=== PATIENT | female | born 1975 | race Caucasian/White ===

== ENCOUNTER 2019-09-27 11:14 | Emergency (ER) | payer OTHER, SELFPAY ==
[2019-09-28 12:21] LABS: SARS-CoV-2 MS2 Positive; SARS-CoV-2 N Gene Negative; SARS-CoV-2 S Gene Negative; SARS-CoV-2 orf1ab Negative
== END 2019-09-27 11:39 | disposition home or self-care (01) ==
LOC: ERS 11:14
DX: R06.02 Shortness of breath (principal); Z20.828 Contact with and (suspected) exposure to other viral communicable diseases; D50.9 Iron deficiency anemia, unspecified; J45.909 Unspecified asthma, uncomplicated; K58.9 Irritable bowel syndrome, unspecified; F41.9 Anxiety disorder, unspecified; F32.9 Major depressive disorder, single episode, unspecified; F17.210 Nicotine dependence, cigarettes, uncomplicated; I10 Essential (primary) hypertension; I05.9 Rheumatic mitral valve disease, unspecified
CPT/HCPCS: 87635; 99283; U0003

== ENCOUNTER 2020-02-17 14:44 | Inpatient (IN) | payer SELFPAY ==
[~2020-02-17 14:44] MED LIST: Iopamidol-370 76% 500 ML 1 ML ONE
[2020-02-17] MEDS ORDERED: Morphine 4 MG/ML VIAL ONE ×3 (15:32→20:40)
[2020-02-17] MEDS ORDERED: Vancomycin 1 GM/200 ML BAG ONE (15:32)
[2020-02-17] MEDS ORDERED: Cefepime 2 GM VIAL ONE (15:32)
[2020-02-17] MEDS ORDERED: Promethazine HCl 25 MG/ML VIAL ONE ×2 (15:32→18:11)
[2020-02-17 15:44] LABS: #Eosinphils 0.2 thou/uL (0.0-0.7); #Lymphocytes 1.8 thou/uL (1.20-3.40); #Monocytes 1.2 thou/uL (0.11-0.59); #Neutrophils 9.9 thou/uL (1.40-6.50); %Basophils 0.2 % (0.0-1.0); %Eosinophils 1.2 % (0.0-10.0); %Lymphocytes 13.9 % (21.0-51.0); %Monocytes 9.4 % (0.0-10.0); %Neutrophils 75.2 % (42.0-75.0); Hemoglobin 11.3 g/dL (12.0-16.0); Mean Corpuscular HGB CONC 32.6 g/dL (32.0-36.0); Mean Corpuscular Hemoglobin 30.4 pg (27.0-31.0); Mean Corpuscular Volume 93.2 fL (78.0-98.0); Mean Platelet Volume 7.6 fL (7.4-10.4); Platelet Count 377 thou/uL (130-400); RBC Distribution Width 13.2 % (11.5-14.5); Red Blood Cell (RBC) Count 3.73 mill/uL (4.20-5.40); White Blood Cell (WBC) Count 13.2 thou/uL (4.8-10.8)
--- NOTE | 2020-02-17 16:05 | RAD ---
PORTABLE CHEST: History: Cough. Patient tested Covid negative on Monday. Comparison: 01-08-20 FINDINGS: Heart size is within normal limits for portable technique. Some slight interstitial markings in the b ase probably related to atelectasis. Scoliotic change in the spine. IMPRESSION: Slightly increased interstitial change in the bases, probably on the basis of atelectasis. POS: [facility]
[2020-02-17 16:07] LABS: ALT (SGPT) 119 U/L (8-55); AST (SGOT) 419 U/L (5-34); Albumin 3.4 g/dL (3.5-5.0); Alkaline Phosphatase 272 U/L (40-110); Anion Gap 17 mmol/L (10-20); BUN (Urea Nitrogen) 9 mg/dL (7.0-18.7); Bilirubin, Total 0.5 mg/dL (0.2-1.2); Calc. Creatinine Clearance 0 mL/min (70-130); Calcium 8.5 mg/dL (7.8-10.44); Carbon Dioxide 22 mmol/L (22-29); Chloride 100 mmol/L (98-107); Globulin 3.7 g/dL (2.4-3.5); Glucose 89 mg/dL (70-105); Magnesium 1.4 mg/dL (1.6-2.6); Protein, Total 7.1 g/dL (6.0-8.3); Sodium 136 mmol/L (136-145)
[2020-02-17 16:20] LABS: Potassium 2.9 mmol/L (3.5-5.1)
[2020-02-17] MEDS ORDERED: Potassium Chloride 20 MEQ/100 ML PREMIX BAG ONE (16:31)
[2020-02-17] MEDS ORDERED: Potassium Chloride 20 MEQ TAB ONE (16:31)
[2020-02-17 17:29] LABS: SARS-CoV-2 NAA Rapid Test Not Detected (NotDetected)
[2020-02-17 17:38] LABS: Bilirubin Negative (Negative); Blood, Urine Negative (Negative); Clarity Clear (Clear); Glucose, Urine (Dipstick) Normal (Negative); Ketone, Urine Negative (Negative); Leukocyte Negative Leu/uL (Negative); Nitrite Negative (Negative); Protein, Urine (Dipstick) Negative (Neg-Trace); Specific Gravity, Urine 1.006 (1.002-1.036); Urobilinogen Normal mg/dL (Less than 2); pH, Urine 5.5 (5.0-9.0)
--- NOTE | 2020-02-17 19:21 | CT ---
CT CHEST, ABDOMEN, AND PELVIS PERFORMED WITH INTRAVENOUS CONTRAST ENHANCEMENT: History: Patient has a history of fever, productive cough. Tested negative for Covid. Comparison: 01-08-2020 FINDINGS: Lungs show some more linear change in the right lower lobe. This may be the sequelae of a previous in fection. There are some subtle areas of nodularity in both lung butts. Most of these are more pleura l based and probably represent small fissural lymph nodes along the minor fissure and major fissure o n the right but there are some other areas of very subtle peripheral nodularity in both lung butts. In addition, there is a pleural based density seen in the right upper lobe which is in the centimeter range, slightly larger pleural based nodularity density measuring approximately 8 mm in width x appr oximately 5 mm in thickness along the anterior chest wall in a parasternal location. Axial image 28. Also a pleural based density seen anteriorly in the right cardiophrenic angle, axial image 44. No ple ural effusion is associated with these findings. There are some mediastinal nodes, one of the larger is a right paratracheal node. It measures 8 mm in size, not pathologically enlarged by size criteria, but somewhat rounded contour. There is a slightl y enlarged prevascular node measuring 10 mm in short axis dimension. Small hilar lymph nodes are pres ent. There is soft tissue asymmetry in the left breast suspicious for a left breast mass. This measures in the 2.4 cm range. There is suggestion of some skin thickening also present and left axillary lymphad enopathy. CT OF THE ABDOMEN PERFORMED WITH INTRAVENOUS CONTRAST ENHANCEMENT: Multiple liver lesions are again identified. They were seen on the previous 01-08-2020 exam but have increased in size and number diffusely infiltrating the right and left lobes. The spleen is within no rmal limits. The pancreas region is unremarkable. Gallbladder has been removed. Right and left adrenal glands and right and left kidneys are normal in size. There is no significant periaortic or mesenteric adenopathy. CT OF PELVIS PERFORMED WITH CONTRAST ENHANCEMENT: Left ovarian cyst incidentally seen measuring in the 3 cm range. No adenopathy or free fluid. Appendi x is normal. Review of the osseous structures show a thoracic vertebral body hemangioma. Some sclerotic bony joy e to it. I would definitely characterize these as metastatic lesions, although a bone scan would be s uggested for better assessment. IMPRESSION: 1. Findings very suspicious for a left breast mass with left axillary adenopathy. 2. Several areas of nodularity within both lung butts, most of which are along the fissures. Al though some subtle areas of nodularity are difficult to exclude as early masses. There are some small slightly prominent right peritracheal lymph nodes and a slightly enlarged prevascular node also seen . In addition, there is a pleural based masses seen within lung butts as discussed above, although n o pleural effusion is identified, these would be suspicious for pleural based neoplastic process. 3. Innumerable liver lesions significantly increased in number as compared to the prior examinat ion although the increase in numbers would raise the possibility of an infectious type process. Given the other findings, this is probably liver metastatic disease. 4. Subtle bony findings as discussed above, probably within normal limits but bone scan would be suggested for definitive confirmation that these are not subtle early blastic bony changes within th e vertebral bodies. 5. Findings discussed with Dr. Hurt. POS: [facility] [place]
[2020-02-17] MEDS ORDERED: RENALLY ADJUST MEDICATIONS FS PRN (20:20)
[2020-02-17] MEDS ORDERED: Magnesium 2 GM/50 ML BAG (IN WATER) ONE (20:41)
[2020-02-17] MEDS: Ondansetron PF 4 MG/2 ML Vial IVP PRN (20:45)
[2020-02-17] MEDS: Morphine 2 MG/ML VIAL SLOW IVP PRN (20:50)
--- NOTE | 2020-02-17 21:42 | PDOC.BPN ---
- Brief Progress Note [id number] dictated
[2020-02-17] MEDS ORDERED: Ondansetron PF 4 MG/2 ML Vial ONE (22:19)
[2020-02-17] MEDS ORDERED: Acetaminophen 500 MG TAB ONE (22:19)
[2020-02-17] MEDS: Sodium Chloride 0.9% 1,000 ML IV SCH (22:22)
[2020-02-17] MEDS ORDERED: metroNIDAZOLE 500 MG/100 ML BAG ONE (22:52)
[2020-02-17] MEDS: metroNIDAZOLE 500 MG in Premix Bag 1 BAG IVPB SCH (22:58)
[2020-02-18] MEDS ORDERED: Morphine 2 MG/ML VIAL ONE ×4 (00:56→17:51)
[2020-02-18] MEDS ORDERED: Ondansetron PF 4 MG/2 ML Vial ONE ×3 (00:57→11:47)
--- NOTE | 2020-02-18 01:06 | HP ---
CHIEF COMPLAINT: Nausea, vomiting, and diarrhea. HISTORY OF PRESENT ILLNESS: Ms. Oconnell is a 44-year-old female with past medical history of irritable bowel syndrome, anxiety, depression, hypertension, mitral valve prolapse, anemia, GERD, chronic knee and back pain, presented to the emergency room with nausea, vomiting, and diarrhea and back pain. Also, she has been coughing with greenish sputum. She has been recently tested for COVID and was negative. She was given 12.5 mg of IV Phenergan and 1 g of Tylenol for from EMS. She took p.o. Motrin prior to calling EMS. She got 500 mL of NS. She stated that she had a fever since last night. She also has a history of C diff in the past. Workup in the emergency room including labs. The patient was found to be hypokalemic with a potassium of 2.9, hypomagnesemic with a magnesium of 1.4, elevated AST/ALT 419/119 respectively, elevated alkaline phosphatase, elevated WBC count 13.2, hemoglobin 11.3, platelets 377. Imaging studies including CT chest and abdomen showed findings suspicious for left breast mass with left axillary adenopathy, several areas of nodularity within both lungs, difficult to exclude early masses. There are slightly prominent right peritracheal lymph nodes. Pleural-based masses are seen within the lung butts. Also, pleural-based neoplastic processes cannot be ruled out. Also findings suspicious for liver metastatic disease. The patient said that she has been feeling a lump in her left breast for almost a year, but she did never seek medical advice. In the emergency room, the patient was started on IV fluids. Potassium and magnesium start replaced and was given broad-spectrum antibiotics. The patient is being admitted to the hospital for further management. COVID-19 test came back undetectable. PAST MEDICAL HISTORY: As mentioned above in the history of present illness. PAST SURGICAL HISTORY: 1. Bilateral jaw surgery. 2. Cholecystectomy. 3. Tubal ligation. PAST PSYCHIATRIC HISTORY: Anxiety and depression. SOCIAL HISTORY: She is a former tobacco user, smokes cigarettes. She denies alcohol drinking. FAMILY HISTORY: Reviewed and noncontributory. HOME MEDICATIONS: See home medication reconciliation form for updated medications. ALLERGIES: ALLERGIC TO ERYTHROMYCIN, MOXIFLOXACIN, SULFA. REVIEW OF SYSTEMS: Review of 14 systems negative except what is mentioned in history of present illness. PHYSICAL EXAMINATION: GENERAL: She is awake, alert, in moderate distress. VITAL SIGNS: Blood pressure is 150/88, pulse 105, respiratory rate is 18, oxygen saturation 97%, temperature 102.6. HEAD AND NECK: Normocephalic, atraumatic. NECK: Supple. CHEST: Fair bilateral air entry. HEART: S1, S2. Regular. ABDOMEN: Distended. Diffusely tender. Bowel sounds present. NEUROLOGIC: Awake, alert, oriented x3. PSYCH: Normal mood. EXTREMITIES: No clubbing or cyanosis. LABORATORY DATA: As mentioned above in the history of present illness. IMAGING STUDIES: As mentioned above in the history of present illness. ASSESSMENT: 1. Sepsis? Suspicious, source is unclear at this point. 2. Probable breast cancer with metastasis. 3. Lung metastasis. 4. Liver metastasis. 5. Hypokalemia. 6. Hypomagnesemia. 7. Anxiety, depression. 8. Former smoker. 9. Hypertension. 10. Nausea, vomiting, diarrhea. 11. History of Clostridium difficile. PLAN: 1. Admit. 2. Replace potassium. 3. Replace magnesium. 4. Septic workup in the ED. 5. Continue with IV antibiotics for now, reassess in a.m. 6. IV fluid hydration. 7. To consult Heme-Oncology for evaluation and further recommendations. 8. Reconcile home medications. 9. DVT prophylaxis as appropriate. 10. Expected length of stay, 2 midnights or more. Job ID: [id number]
[2020-02-18 03:22] LABS: #Basophils 0.1 thou/uL (0.0-0.2); #Lymphocytes 2.7 thou/uL (1.20-3.40); #Monocytes 1.6 thou/uL (0.11-0.59); #Neutrophils 11.4 thou/uL (1.40-6.50); %Basophils 0.4 % (0.0-1.0); %Eosinophils 0.2 % (0.0-10.0); %Lymphocytes 16.9 % (21.0-51.0); %Monocytes 9.9 % (0.0-10.0); %Neutrophils 72.7 % (42.0-75.0); Hemoglobin 11.3 g/dL (12.0-16.0); Mean Corpuscular HGB CONC 33.3 g/dL (32.0-36.0); Mean Corpuscular Hemoglobin 30.1 pg (27.0-31.0); Mean Corpuscular Volume 90.5 fL (78.0-98.0); Mean Platelet Volume 7.7 fL (7.4-10.4); Platelet Count 359 thou/uL (130-400); RBC Distribution Width 13.4 % (11.5-14.5); Red Blood Cell (RBC) Count 3.75 mill/uL (4.20-5.40); White Blood Cell (WBC) Count 15.7 thou/uL (4.8-10.8)
[2020-02-18 03:42] LABS: ALT (SGPT) 101 U/L (8-55); AST (SGOT) 270 U/L (5-34); Alkaline Phosphatase 262 U/L (40-110); Anion Gap 18 mmol/L (10-20); BUN (Urea Nitrogen) 7 mg/dL (7.0-18.7); Bilirubin, Total 0.8 mg/dL (0.2-1.2); Calc. Creatinine Clearance 0 mL/min (70-130); Calcium 8.1 mg/dL (7.8-10.44); Carbon Dioxide 18 mmol/L (22-29); Chloride 104 mmol/L (98-107); Globulin 3.8 g/dL (2.4-3.5); Glucose 97 mg/dL (70-105); Magnesium 2.1 mg/dL (1.6-2.6); Potassium 3.6 mmol/L (3.5-5.1); Protein, Total 6.8 g/dL (6.0-8.3); Sodium 136 mmol/L (136-145)
[2020-02-18] MEDS: Ondansetron PF 4 MG/2 ML Vial IVP PRN ×3 (05:06→20:57)
[2020-02-18] MEDS: Morphine 2 MG/ML VIAL SLOW IVP PRN ×5 (05:06→22:18)
[2020-02-18] MEDS ORDERED: Cefepime 2 GM VIAL ONE ×2 (05:08→17:51)
[2020-02-18] MEDS: Cefepime 2 GM in Sodium Chloride 0.9% 100 ML IVPB SCH ×2 (05:15→18:03)
[2020-02-18] MEDS ORDERED: metroNIDAZOLE 500 MG/100 ML BAG ONE ×2 (06:51→16:44)
[2020-02-18] MEDS: metroNIDAZOLE 500 MG in Premix Bag 1 BAG IVPB SCH ×3 (06:58→23:08)
[2020-02-18] MEDS: Sodium Chloride 0.9% 1,000 ML IV SCH ×2 (06:58→17:24)
[2020-02-18] MEDS ORDERED: Famotidine/PF 20 mg/2ml Vial ONE (09:00)
[2020-02-18] MEDS: Famotidine/PF 20 mg/2ml Vial SLOW IVP SCH ×2 (12:18→20:52)
--- NOTE | 2020-02-18 13:43 | NM ---
WHOLE BODY BONE SCAN: 02/18/20 HISTORY: Suspicious metastatic cancer. RADIOPHARMACEUTICAL: 33 millicuries technetium 99m-MDP injected intravenously. COMPARISON: None. CORRELATION: CT chest, abdomen and pelvis from yesterday. FINDINGS: There are foci of increased uptake in the thoracic and lumbar spine most prominent at T12, L1 and L2 regions. There is also increased focal increased uptake in the left proximal femur. Increased uptake in the shoulders, elbows, wrists, knees and feet are consistent with degenerative ch anges. Tracer excretion through the kidneys are within normal limits. The right kidney is low lying c ompared to the left. IMPRESSION: Findings are suspicious for osseous metastatic disease. POS: [facility]
[2020-02-18] MEDS ORDERED: Morphine 4 MG/ML VIAL ONE (14:16)
--- NOTE | 2020-02-18 15:43 | ULT ---
Exam: Left breast ultrasound and left axillary ultrasound HISTORY: Left breast mass noted on CT. Possible left breast cancer with metastases. FINDINGS: Targeted sonographic imaging of the left breast demonstrates an irregular marginated shadow ing mass measuring 2.9 x 1.7 x 2.1 cm. Targeted imaging of the left axilla demonstrates a necrotic left axillary lymph node measuring 1.2 x 0.8 x 1.3 cm. IMPRESSION: BI-RADS Category 5. Left breast malignancy is suspected along with a necrotic/metastatic left breast lymph node. RECOMMENDATION: Left breast diagnostic mammogram should be performed on an outpatient basis. Transcribed Date/Time: 02/18/2020 4:04 PM
--- NOTE | 2020-02-18 15:49 | ULT ---
Exam: Left breast ultrasound guided biopsy and left axillary biopsy with ultrasound guidance HISTORY: Left breast mass. Metastatic left axillary lymph node. FINDINGS: Successful left breast ultrasound-guided biopsy. A total of three passes were performed. Three 14-gau ge samples were placed directly in formalin. Biopsy clip was placed. Successful left breast axillary biopsy. Aspiration with a Franseen needle (18-gauge) was performed. S mall amount of tissue is present. A second 18-gauge core biopsy sample was placed directly in formalin. Post procedure mammogram confirms the clip is in an appropriate location. TECHNIQUE: Consent obtained to perform a left breast biopsy and left axillary lymph node biopsy with ultrasound guidance. Skin was prepped and draped in sterile fashion. 1% lidocaine, buffered with sodium bicarbonate, was used for local anesthesia. Under ultrasound guidance, 14-gauge needle was advanced i nto the left breast lesion. Three samples were obtained and placed directly in formalin. Biopsy clip was placed. Patient tolerated the procedure well. No immediate or postprocedural complications. 1% lidocaine, buffered with sodium bicarbonate, was used for local anesthesia at the level of the lef t axilla. Initially, an 18-gauge Franseen aspiration was performed. Minimal tissue was present. Therefore, a second 18-gauge core biopsy sample was obtained and placed directly in formalin. No imme diate or postprocedure complications. Postbiopsy mammogram was performed. IMPRESSION: 1. Successful left breast biopsy with ultrasound guidance. 2. Successful left axillary lymph node biopsy with ultrasound guidance. 3. Final pathologic diagnosis pending. Transcribed Date/Time: 02/18/2020 4:08 PM
--- NOTE | 2020-02-18 15:52 | MMO ---
Exam: Post procedure left breast mammogram COMPARISON: None. Initial mammogram FINDINGS: CC and MLO views left breast and a straight appropriate clip position in a spiculated mass in the upper outer left breast. IMPRESSION: Appropriate clip position. Postprocedure mammogram
--- NOTE | 2020-02-18 15:58 | ULT ---
Please refer to ultrasound breast biopsy report for further detail.
[2020-02-18] MEDS ORDERED: Vancomycin 1 GM in Premix Bag 1 BAG IVPB SCH ×2 (17:00→20:00)
--- NOTE | 2020-02-18 17:44 | PDOC.HOSPP ---
- Subjective Encounter Date: 02/18/20 Encounter Time: 13:00 Subjective: F/u: breast mass fever, abdominal pain Breast mass - THe patient reports severe pain on left breast. She states it has been growing for the past one year. She did not get her lump checked out because she said she had no insurance. Her PCP knew about it adn referred her for a mammogram but she did not get it done fo rthis reason. She reports milky discharge coming from her breast, no blood. SHe took control for years. Abd pain - She also reports chronic abdominal pain and diarrhea for years. She says her mother and sister have inflammatory bowel disease ( she thinks). She has never had a colonoscopy. She still is having pain in RUQ . She has not seen blood in her stools. She denies eating undercooked meat . The pain radiates to her back . The patient states she had a cholecystectomy earlier this year for abdominal pain. SHe also says she had a liver biopsy for liver lesions within the past few years that was normal - Objective Result Diagrams: 02/18/20 03:14 02/18/20 03:13 Hospitalist ROS - Review of Systems Constitutional: denies: fever, chills - Medication Medications: Active Medications Generic Name Dose Route Start Last Admin Trade Name Freq PRN Reason Stop Dose Admin Famotidine 20 mg 02/18/20 09:00 02/18/20 12:18 Famotidine/Pf 20 Mg/2ml Vial SLOW IVP 20 mg BID KATRINA Administration Sodium Chloride 1,000 mls @ 100 mls/hr 02/17/20 20:30 02/18/20 17:24 Normal Saline 0.9% IV Not Given .Q10H KATRINA Cefepime HCl 2 gm/ Sodium 100 mls @ 200 mls/hr 02/18/20 04:00 02/18/20 05:15 Chloride IVPB 100 mls 0400,1600 KATRINA Administration Metronidazole 500 mg/ Device 100 mls @ 100 mls/hr 02/17/20 22:00 02/18/20 17:13 IVPB 100 mls Q8HR KATRINA Administration Morphine Sulfate 2 mg 02/18/20 00:38 02/18/20 14:31 Morphine 2 Mg/Ml Vial SLOW IVP 2 mg Q4H PRN Administration Pain Ondansetron HCl 4 mg 02/18/20 00:40 02/18/20 12:19 Ondansetron Pf 4 Mg/2 Ml Vial IVP 4 mg Q6H PRN Administration Nausea/Vomiting - Exam General Appearance: NAD, awake alert Eye: PERRL, anicteric sclera ENT: normocephalic atraumatic, no oropharyngeal lesions Neck: no JVD Heart: RRR, no murmur, no gallops, no rubs Respiratory: CTAB, no wheezes, no rales, no ronchi Gastrointestinal: soft, non-tender, non-distended, normal bowel sounds Extremities: no cyanosis, no clubbing, no edema Skin: normal turgor, no lesions, no rashes Neurological: cranial nerve grossly intact, normal sensation to touch, no focal deficits, no new deficit Musculoskeletal: normal tone, normal strength, no muscle wasting Hosp A/P - Plan Left breast ultrasound: mass measuring 2.9 x 1.7 x 2.1 cm with necrotic axillary lymph node measuring 1.2 x 0.3 x 1.3 cm This is a 44 year old female with past medical history of anxiety, depression, mitral valve prolapse, gerd who presented to the hospital with breast pain, abdominal pain, diarrhea #Left breast mass with axillary adenopathy - suspect malignancy - discussed with radiology, plan for left breast mass biopsy today. - oncology has been consulted. Bone scan was done today showing possible osseous metastatic disease #Sepsis- possibly secondary to breast cellulitis/mastitis - fever of 102 and tachycardia - started on cefepime and flagyl. Will add vancomycin #C diff infection #Transaminitis #Chronic abdominal pain - LFTs are elevated but downtrending. GI has been consulted. CT abdomen showed liver lesions, but patient reports biopsy in the past that was normal. Obtain outpatient liver biopsy results - patient tested positive for C diff, ordered oral vancomycin - may have Crohn's disease or ulcerative colitis? Gi consulted - f/u stool cultures, ova and parasite. C diff negative Disposition: pending biopsy results , GI consult, heme consult
[2020-02-18 20:00] VITALS: BMI 31.3
[2020-02-18] MEDS: Vancomycin HCl 25 MG/ML Oral PO SCH (20:51)
[2020-02-18] MEDS: Vancomycin 1.5 GRAM/300 ML BAG 1.5 GM in Premix Bag 1 BAG IVPB SCH (20:52)
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
--- NOTE | 2020-02-18 21:51 | CON ---
DATE OF CONSULTATION: 02/18/2020 This is a GI inpatient consultation note. REASON FOR CONSULTATION: Chronic diarrhea and abdominal pain. Elevated LFTs, suspected metastatic disease. HISTORY OF PRESENT ILLNESS: Rozina Aguilar is a very pleasant 44-year-old woman, who was admitted to the hospital yesterday. She has a history significant for depression and anxiety as well as chronic pain. She had a cholecystectomy in the remote past. She was recently hospitalized with pyelonephritis and C difficile in late December 2019. She was admitted here yesterday with recurrence of fevers and ongoing significant nausea, vomiting, and diarrhea. Laboratory studies have demonstrated leukocytosis and new LFT elevation and imaging with CT is significant for multiple bilateral new Pulmonary and pleural-based nodules as well as many small liver lesions, which is concerning for metastatic disease, as well as malignant-appearing left breast mass with necrotic adenopathy. She just got back from imaging-guided breast biopsy. She was started on sepsis treatment with broad-spectrum antibiotics with vancomycin, cefepime, and metronidazole. With regard to gastrointestinal symptoms, she said she really has had chronic diarrhea and abdominal pain for many years, but significantly worse over the past several days. Notably, she was noted to have C difficile positive antigen and toxin on testing in December and believe she completed treatment for this, but cannot really verify it. She has had multiple family members with C difficile in the past, but denies any family history of inflammatory bowel disease. She has never undergone EGD or colonoscopy. REVIEW OF SYSTEMS: Full review of systems including constitutional, head, eyes, ears, nose, throat, GI, , cardiovascular, respiratory, musculoskeletal, neurologic systems is negative except as noted in the HPI. PAST MEDICAL HISTORY: Depression and anxiety, hypertension, IBS, GERD, chronic knee and back pain. Clostridium difficile infection December 2019. Jaw surgery. Cholecystectomy around 2006. Tubal ligation. Pyelonephritis. ALLERGIES: ERYTHROMYCIN, MOXIFLOXACIN, SULFA. OUTPATIENT MEDICATIONS: 1. Tramadol. 2. Venlafaxine. 3. Florastor. 4. Potassium chloride. 5. Pantoprazole 40 mg daily. 6. Zofran p.r.n. 7. Lisinopril. 8. Lomotil p.r.n. 9. Keflex. 10. Soma. 11. Xanax. INPATIENT MEDICATIONS: 1. Cefepime 2 g IV q.12 hours. 2. Pepcid 20 mg IV q.12 hours. 3. Metronidazole 500 mg IV q.8 hours. 4. Morphine p.r.n. 5. Zofran p.r.n. 6. Vancomycin 1 g IV q.12 hours. SOCIAL HISTORY: She is a former smoker. No alcohol abuse. FAMILY HISTORY: Negative for inflammatory bowel disease or colon cancer that she knows of. She has a paternal aunt and a maternal aunt who have had breast cancer PHYSICAL EXAMINATION: VITAL SIGNS: Temperature 102.6, pulse 115, blood pressure 150/88, 97% oxygen saturation on room air. GENERAL: A 44-year-old woman lying in bed comfortably, in no distress. MENTAL: She is alert and oriented, pleasant, conversational. She is a bit tearful and anxious. SKIN: No jaundice. No rashes were palpable EYES: No scleral icterus. Extraocular movements intact. ENT: Mucous membranes moist. No oral lesions. LYMPH: No submandibular supraclavicular lymphadenopathy, thyroid nontender to palpation. HEART: Regular rate and rhythm. LUNGS: Clear to auscultation bilaterally. BREAST: I did not perform a clinical breast exam this afternoon. ABDOMEN: Nondistended, bowel sounds present. Soft. Generalized tenderness to palpation, but no guarding, rebound tenderness. EXTREMITIES: No peripheral edema. VESSELS: Radial pulses 2+ bilaterally. NEURO: Cranial nerves II through XII intact bilaterally. No focal deficits. LABORATORY STUDIES: WBC 15.7, hemoglobin 11.3, platelets 359, MCV 90. Sodium 136, potassium 3.6, BUN 7, creatinine 0.75, total bilirubin 0.8, alkaline phosphatase elevated to 262, AST elevated to 70, ALT is 101, albumin 3.0. Urinalysis negative. COVID PCR negative. Urine is positive for opiates, benzos, and cannabinoids. Stool C difficile antigen is positive. Toxin is pending. Blood and urine cultures showing no growth at 24 hours. IMAGING STUDIES: CT of the chest, abdomen, and pelvis showed multiple concerning findings. There is a left breast mass with left axillary adenopathy. Several areas of nodularity in both lung butts with pleural-based masses. There are innumerable liver lesions, likely representing metastatic disease. There are some subtle vertebral bone lesions as well. Bone scan shows increased uptake in multiple levels of the thoracic and lumbar spine as well as in the left femur suspicious for metastatic disease. Breast ultrasound shows a 2.9 cm left breast mass, also necrotic left axillary lymph node measuring 1.3 cm. This was biopsied. ASSESSMENT/PLAN: 1. Sepsis. 2. Chronic diarrhea, with recent history of C difficile. The patient tested positive for C difficile antigen and toxin in late December. It is unclear to me whether she completed treatment for this. Clostridium difficile antigen is positive here. Regardless of the toxin results, we will go ahead and start oral vancomycin 125 mg 4 times daily. We will expand the stool studies to include fecal lactoferrin and stool culture. This is a possible source of her sepsis presentation, or this could just represent reactive changes from metastatic disease. 3. Probable metastatic disease, with left breast mass. This was biopsied earlier today. Pathology is pending. This is obviously the primary issue here. 4. Elevated LFTs. This is in the context of innumerable small liver lesions concerning for metastatic disease. It likely does not represent any other primary hepatocellular process. We will go ahead and order a viral hepatitis serologies, autoimmune markers, iron studies, etc. to rule out any concomitant primary liver disease. 5. I do not think the patient is going to benefit from any endoscopic workup unless the breast biopsy comes back negative or unrevealing for primary malignancy or if the patient's stool studies are negative and significant diarrhea persists despite oral vancomycin course. Thank you for the consultation. Please call anytime with questions or concerns. Job ID: [id number]
[2020-02-19] MEDS: Vancomycin HCl 25 MG/ML Oral PO SCH ×5 (00:17→23:15)
[2020-02-19] MEDS: Morphine 2 MG/ML VIAL SLOW IVP PRN ×6 (02:31→23:05)
[2020-02-19] MEDS: Ondansetron PF 4 MG/2 ML Vial IVP PRN ×2 (02:31→21:09)
[2020-02-19] MEDS: Sodium Chloride 0.9% 1,000 ML IV SCH ×2 (02:32→11:50)
[2020-02-19] MEDS: Cefepime 2 GM in Sodium Chloride 0.9% 100 ML IVPB SCH (04:28)
[2020-02-19 04:58] LABS: INR-International Normal Ratio 1.4; Prothrombin Time 17.2 sec (12.0-14.7)
[2020-02-19 05:05] LABS: Acetaminophen Less than 6.0 mcg/mL (10.0-30.0); Iron 17 ug/dL (50-170); Iron Binding Capacity, Total 131 mcg/dL (265-497)
[2020-02-19] MEDS: metroNIDAZOLE 500 MG in Premix Bag 1 BAG IVPB SCH ×2 (05:24→14:59)
[2020-02-19 06:17] LABS: HBSAg Index 0.15 S/CO (0-0.99); Hep B Surf Ag Non-Reactive S/CO (NonReactive); Hep C IgG Ab Non-Reactive (NonReactive); Hep C Index 0.07 S/CO (0-0.79)
[2020-02-19 06:18] LABS: Hep A IgM AB Non-Reactive (NonReactive)
[2020-02-19 06:19] LABS: Hep A IgM S/CO 0.16 S/CO (0-0.79)
[2020-02-19 06:20] LABS: HBCM Index 0.11 S/CO (0-0.79); Hepatitis B Core IgM Abs Non-Reactive (NonReactive)
[2020-02-19 06:55] LABS: Ferritin 7089.82 ng/mL (10-291)
[2020-02-19] MEDS: Vancomycin 1.5 GRAM/300 ML BAG 1.5 GM in Premix Bag 1 BAG IVPB SCH ×2 (09:50→21:15)
[2020-02-19] MEDS: Famotidine/PF 20 mg/2ml Vial SLOW IVP SCH ×3 (09:50→21:11)
[2020-02-19] MEDS: traMADol HCl 50 MG TAB PO PRN ×3 (09:50→23:06)
[2020-02-19] MEDS: Ketorolac Tromethamine 30 MG/ML VIAL IVP PRN ×2 (09:51→16:20)
[2020-02-19] MEDS: CEFAZOLIN 2 GM in Premix Bag 1 BAG IVPB SCH ×2 (09:59→17:48)
--- NOTE | 2020-02-19 10:26 | PDOC.HOSPP ---
- Subjective Encounter Date: 02/19/20 Encounter Time: 10:26 Subjective: Patient complains of ongoing abdominal pain, back pain, and left breast pain. Rates pain at 7-10/10, despite current pain regime. Her breast pain is worst in the area of her biopsy site. She is still having nausea and frequent bouts of watery diarrhea. No blood or mucous in stool. She has been able to eat and drink, although this exacerbates her diarrhea. - Objective Vital Signs & Weight: Vital Signs (12 hours) Temp Pulse Resp BP BP Pulse Ox 02/19/20 08:00 98.5 F 103 H 16 135/88 96 02/19/20 04:00 98.9 F 113 H 14 152/84 H 95 02/18/20 23:25 98.9 F 107 H 16 144/82 H 95 Weight Weight 206 lb I&O: 02/18/20 02/19/20 02/20/20 06:59 06:59 06:59 Intake Total 2800 Balance 2800 Result Diagrams: 02/19/20 13:16 02/18/20 03:13 Hospitalist ROS - Review of Systems Constitutional: denies: fever, chills Respiratory: denies: cough, shortness of breath Cardiovascular: denies: chest pain, palpitations Gastrointestinal: reports: nausea, vomiting, abdominal pain, diarrhea. denies: melena, hematochezia Genitourinary: denies: dysuria, frequency, incontinence Musculoskeletal: reports: back pain Skin: denies: rash - Medication Medications: Active Medications Generic Name Dose Route Start Last Admin Trade Name Freq PRN Reason Stop Dose Admin Famotidine 20 mg 02/18/20 09:00 02/19/20 09:56 Famotidine/Pf 20 Mg/2ml Vial SLOW IVP Not Given BID KATRINA Sodium Chloride 1,000 mls @ 100 mls/hr 02/17/20 20:30 02/19/20 02:32 Normal Saline 0.9% IV 1,000 mls .Q10H KATRINA Administration Metronidazole 500 mg/ Device 100 mls @ 100 mls/hr 02/17/20 22:00 02/19/20 05:24 IVPB 100 mls Q8HR KATRINA Administration Vancomycin HCl 1.5 gm/ Device 300 mls @ 200 mls/hr 02/18/20 21:00 02/19/20 09:50 IVPB 300 mls Q12HR KATRINA Administration Ketorolac Tromethamine 30 mg 02/19/20 09:28 02/19/20 09:51 Ketorolac Tromethamine 30 Mg/Ml Vial IVP 02/24/20 09:29 30 mg Q6H PRN Administration Pain Morphine Sulfate 2 mg 02/18/20 00:38 02/19/20 06:34 Morphine 2 Mg/Ml Vial SLOW IVP 2 mg Q4H PRN Administration Pain Ondansetron HCl 4 mg 02/18/20 00:40 02/19/20 02:31 Ondansetron Pf 4 Mg/2 Ml Vial IVP 4 mg Q6H PRN Administration Nausea/Vomiting Pantoprazole Sodium 40 mg 02/19/20 09:00 02/19/20 09:51 Pantoprazole 40 Mg Tab PO 40 mg DAILY KATRINA Administration Tramadol HCl 25 mg 02/19/20 09:29 02/19/20 09:50 Tramadol Hcl 50 Mg Tab PO 25 mg Q6H PRN Administration Severe Pain (7-10) Vancomycin HCl 125 mg 02/18/20 18:00 02/19/20 05:24 Vancomycin Hcl 25 Mg/Ml Oral PO 125 mg Q6HR KATRINA Administration - Exam General Appearance: awake alert Eye: PERRL ENT: normocephalic atraumatic, moist mucosa Neck: supple, no lymphadenopathy Heart: RRR, no murmur, no gallops, no rubs Respiratory: CTAB, no wheezes, no rales, no ronchi Gastrointestinal: soft, normal bowel sounds, tender to palpation (diffuse) Extremities: no cyanosis, no edema Skin - other findings: Left breast: tenderness to the lower quadrants, decreased redness of skin Musculoskeletal: normal tone, normal strength Psychiatric: normal affect, A&O x 3 Hosp A/P - Plan continue antibiotics Left breast ultrasound: mass measuring 2.9 x 1.7 x 2.1 cm with necrotic axillary lymph node measuring 1.2 x 0.3 x 1.3 cm This is a 44 year old female with past medical history of anxiety, depression, mitral valve prolapse, gerd who presented to the hospital with breast pain, abdominal pain, diarrhea #Left breast mass with axillary adenopathy - suspect malignancy - left breast mass biopsy done yesterday with results pending - oncology has been consulted. Bone scan was done yesterday shows possible osseous metastatic disease - patient with persistent pain. Will Add Toradol and Tramadol to pain regimen and continue IV morphine #Sepsis- possibly secondary to breast cellulitis/mastitis - Afebrile today, but continued tachycardia. WBC has improved from 15 to 11 - Continue with Vancomycin, but will switch from cefepime to cefazolin for MSSA and strep coverage #C diff infection #Chronic abdominal pain - LFTs are elevated but downtrending. GI has been consulted. CT abdomen showed liver lesions, but patient reports biopsy done here at [facility] around 2002- 2006 timeframe was normal. Will attempt to obtain these records. - patient tested positive for C diff, continue oral vancomycin - stool cultures, ova and parasite are still pending #Transaminitis - likely from dehydration - LFTs are dowtnrending with IV fluids. Hepatitis panel is normal, SHAHLA, anti- smooth muscle and antimitochondrial antibody pending Disposition: pending biopsy results and improvement in pain Attending addendum: I have seen and examined the patient with the medical student and agree with the assessment and plan. Physical exam: patient is still having severe breast tenderness. She was in te ars on examination from being in pain. She also has abdominal tenderness. Disposition is pending improvement in pain control, diarrhea. Switched cefepime to cefazolin since doubt bacterial intra-abdominal infection and to cover for breast cellulitis
[2020-02-19 13:30] LABS: Hemoglobin 9.7 g/dL (12.0-16.0); Mean Corpuscular HGB CONC 32.6 g/dL (32.0-36.0); Mean Corpuscular Hemoglobin 30.3 pg (27.0-31.0); Mean Corpuscular Volume 92.9 fL (78.0-98.0); Platelet Count 328 thou/uL (130-400); RBC Distribution Width 13.3 % (11.5-14.5); White Blood Cell (WBC) Count 11.6 thou/uL (4.8-10.8)
[2020-02-19 13:59] LABS: ALT (SGPT) 62 U/L (8-55); AST (SGOT) 88 U/L (5-34); Albumin 2.8 g/dL (3.5-5.0); Alkaline Phosphatase 190 U/L (40-110); Bilirubin, Direct 0.3 mg/dL (0.1-0.3); Bilirubin, Total 0.4 mg/dL (0.2-1.2); Protein, Total 6.2 g/dL (6.0-8.3)
[2020-02-19 14:24] LABS: Thyroid Stimulating Hormone 2.2818 uIU/mL (0.35-4.94)
--- NOTE | 2020-02-19 19:33 | PRG ---
DATE OF SERVICE: 02/19/2020 This is a GI followup. SUBJECTIVE: Ms. Oconnell notes her diarrhea is about the same as it was yesterday. Her stool did test positive for Clostridium difficile antigen, toxin. Dr. Campo did start her on vancomycin yesterday. She had her breast biopsy done, she states yesterday, the pathology is still pending. PHYSICAL EXAMINATION: VITAL SIGNS: Temperature 98, pulse 87, and blood pressure 127/71. ABDOMEN: Protuberant, nontender. LABORATORY DATA: White count 11.6, down from 15, yesterday. Hemoglobin is 9.7, platelet count 328. AST and ALT down to 88 and 62, alkaline phosphatase of 160. B12 normal. TSH normal. Folate normal. ASSESSMENT: 1. Multiple liver masses, likely metastatic breast cancer with large breast mass biopsied, necrotic axillary mass. 2. Clostridium difficile colitis. She states she has had this in the past, the last time back in December. She states she was treated for only two weeks in [place], and there is a positive Clostridium difficile toxin antigen from 01/09. RECOMMENDATIONS: 1. Florastor for three months. 2. Vancomycin, would increase to 250 q.6 hours for 2 weeks and then after two weeks, taper to t.i.d. for a week, b.i.d. for a week, once a day for a week, then every other day for 7 doses, then every third day for 7 doses. 3. Would stop the Protonix since she is going to be on famotidine. 4. The cefepime has been stopped. Would stop the Ancef with negative blood cultures, it is going to make her Clostridium difficile worse. Job ID: [id number]
[2020-02-19] MEDS ORDERED: Vancomycin HCl 25 MG/ML Oral PO SCH (20:00)
[2020-02-19] MEDS: Saccharomyces boulardii 250 MG CAP PO SCH (21:11)
[2020-02-20] MEDS: metroNIDAZOLE 500 MG in Premix Bag 1 BAG IVPB SCH ×4 (00:14→21:01)
[2020-02-20] MEDS: Sodium Chloride 0.9% 1,000 ML IV SCH ×3 (00:19→14:20)
[2020-02-20] MEDS: Ketorolac Tromethamine 30 MG/ML VIAL IVP PRN ×4 (02:04→22:07)
[2020-02-20] MEDS: CEFAZOLIN 2 GM in Premix Bag 1 BAG IVPB SCH (02:06)
[2020-02-20] MEDS: Morphine 2 MG/ML VIAL SLOW IVP PRN ×4 (05:47→20:45)
[2020-02-20] MEDS: traMADol HCl 50 MG TAB PO PRN (05:48)
[2020-02-20] MEDS: Vancomycin HCl 25 MG/ML Oral PO SCH ×3 (05:49→17:59)
[2020-02-20 07:14] LABS: Hemoglobin 9.9 g/dL (12.0-16.0); Mean Corpuscular HGB CONC 32.1 g/dL (32.0-36.0); Mean Corpuscular Hemoglobin 30.7 pg (27.0-31.0); Mean Corpuscular Volume 95.6 fL (78.0-98.0); Mean Platelet Volume 7.3 fL (7.4-10.4); Platelet Count 318 thou/uL (130-400); RBC Distribution Width 13.4 % (11.5-14.5); Red Blood Cell (RBC) Count 3.23 mill/uL (4.20-5.40); White Blood Cell (WBC) Count 9.9 thou/uL (4.8-10.8)
[2020-02-20 07:34] LABS: Anion Gap 15 mmol/L (10-20); BUN (Urea Nitrogen) 11 mg/dL (7.0-18.7); Calc. Creatinine Clearance 139 mL/min (70-130); Calcium 7.9 mg/dL (7.8-10.44); Carbon Dioxide 20 mmol/L (22-29); Chloride 108 mmol/L (98-107); Glucose 90 mg/dL (70-105); Sodium 140 mmol/L (136-145)
[2020-02-20] MEDS: Famotidine/PF 20 mg/2ml Vial SLOW IVP SCH ×2 (08:18→20:47)
[2020-02-20] MEDS: Ondansetron PF 4 MG/2 ML Vial IVP PRN (08:23)
[2020-02-20 08:30] LABS: Vancomycin, Trough 21.7 ug/mL
[2020-02-20] MEDS: Vancomycin 1.5 GRAM/300 ML BAG 1.5 GM in Premix Bag 1 BAG IVPB SCH (08:33)
[2020-02-20] MEDS ORDERED: Doxycycline 100 MG CAP PO SCH (09:00)
[2020-02-20] MEDS ORDERED: Vancomycin HCl 1.25 GM in Sodium Chloride 0.9% 250 ML 250 ML IVPB SCH (09:00)
[2020-02-20 09:47] LABS: ALT (SGPT) 45 U/L (8-55); AST (SGOT) 68 U/L (5-34); Albumin 2.8 g/dL (3.5-5.0); Alkaline Phosphatase 174 U/L (40-110); Bilirubin, Direct 0.2 mg/dL (0.1-0.3); Bilirubin, Total 0.2 mg/dL (0.2-1.2); Protein, Total 5.8 g/dL (6.0-8.3)
[2020-02-20 12:52] LABS: ANA Symphony (Qualitative) Negative (Negative); ANA Symphony (Quantitative) 0.3 Ratio (< 0.7 Negative); dsDNA IgG Antibody 0.9 IU/mL (<10 Negative)
[2020-02-20 12:53] LABS: EliA Vaculitis New Method **** NEW METHOD ****; Mitochondrial Ab 1.2 U/mL (<4 Negative)
--- NOTE | 2020-02-20 14:44 | PDOC.HOSPP ---
- Subjective Encounter Date: 02/20/20 Encounter Time: 14:58 Subjective: Ms. Anish Aguilar has significant improvement of her breast, abdominal, and back pain with her current pain regime. Rates pain around 6/10, but improving. She reports having more energy today and has been able to walk to and from the bathroom. She denies any nipple discharge. She has had 6 episodes of diarrhea so far today as well as mild nausea. No vomitting. She is eating and drinking well, although this tends to exacerbate her diarrhea. However, she has a PMHx of IBS and states that post prandial diarrhea is somewhat recurrent for her over the past few years. She denies any fever, chills, cough, shortness of breath, chest pain. - Objective Vital Signs & Weight: Vital Signs (12 hours) Temp Pulse Resp BP BP Pulse Ox 02/20/20 11:20 96.9 F L 73 16 130/80 97 02/20/20 08:00 96.9 F L 88 16 166/99 H 97 02/20/20 03:43 97.4 F L 78 16 149/82 H 95 Weight Admit Weight 206 lb Weight 206 lb I&O: 02/19/20 02/20/20 02/21/20 06:59 06:59 06:59 Intake Total 2800 Balance 2800 Result Diagrams: 02/20/20 06:54 02/20/20 06:54 Hospitalist ROS - Review of Systems Constitutional: denies: fever, chills, sweats Respiratory: denies: cough, shortness of breath Cardiovascular: denies: chest pain, palpitations, light headedness Gastrointestinal: reports: nausea, abdominal pain, diarrhea. denies: vomiting, melena, hematochezia Genitourinary: denies: dysuria, frequency - Medication Medications: Active Medications Generic Name Dose Route Start Last Admin Trade Name Freq PRN Reason Stop Dose Admin Famotidine 20 mg 02/18/20 09:00 02/20/20 08:18 Famotidine/Pf 20 Mg/2ml Vial SLOW IVP 20 mg BID KATRINA Administration Metronidazole 500 mg/ Device 100 mls @ 100 mls/hr 02/17/20 22:00 02/20/20 13:48 IVPB 100 mls Q8HR KATRINA Administration Ketorolac Tromethamine 30 mg 02/19/20 09:28 02/20/20 13:52 Ketorolac Tromethamine 30 Mg/Ml Vial IVP 02/24/20 09:29 30 mg Q6H PRN Administration Pain Morphine Sulfate 2 mg 02/18/20 00:38 02/20/20 11:40 Morphine 2 Mg/Ml Vial SLOW IVP 2 mg Q4H PRN Administration Pain Ondansetron HCl 4 mg 02/18/20 00:40 02/20/20 08:23 Ondansetron Pf 4 Mg/2 Ml Vial IVP 4 mg Q6H PRN Administration Nausea/Vomiting Pantoprazole Sodium 40 mg 02/19/20 09:00 02/20/20 08:20 Pantoprazole 40 Mg Tab PO 40 mg DAILY KATRINA Administration Saccharomyces Boulardii 250 mg 02/19/20 21:00 02/19/20 21:11 Saccharomyces Boulardii 250 Mg Cap PO 250 mg HS KATRINA Administration Tramadol HCl 25 mg 02/19/20 09:29 02/20/20 05:48 Tramadol Hcl 50 Mg Tab PO 25 mg Q6H PRN Administration Severe Pain (7-10) Vancomycin HCl 250 mg 02/19/20 23:59 02/20/20 11:44 Vancomycin Hcl 25 Mg/Ml Oral PO 250 mg Q6HR KATRINA Administration - Exam General Appearance: NAD, awake alert Eye: PERRL, anicteric sclera ENT: normocephalic atraumatic, moist mucosa Neck: supple, no lymphadenopathy Heart: RRR, no murmur, no gallops, no rubs Respiratory: no rales, no ronchi, normal chest expansion, wheezes (mild, expiratory) Gastrointestinal: soft, non-distended, normal bowel sounds, no palpable masses, tender to palpation (diffuse) Extremities: no cyanosis, no clubbing, no edema Skin: normal turgor, no lesions, no rashes Skin - other findings: left breast: tenderness on the lower half, no erythema of skin Neurological: no focal deficits Musculoskeletal: normal tone, normal strength Psychiatric: normal affect, normal behavior, A&O x 3 Hosp A/P - Plan Left breast ultrasound: mass measuring 2.9 x 1.7 x 2.1 cm with necrotic axillary lymph node measuring 1.2 x 0.3 x 1.3 cm This is a 44 year old female with past medical history of anxiety, depression, mitral valve prolapse, gerd who presented to the hospital with breast pain, abdominal pain, diarrhea #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 Bone scan showed possible osseous metastatic disease - oncology has been consulted. Patient will follow up with oncology as an outpatient with consideration of mediport placement once her C diff has resolved - continue tramadol and toradol for pain. Will increase tramadol to 50 mg q4 hours #Sepsis- possibly secondary to C diff, possibly breast cellulitis/mastitis - Afebrile. WBC has normalized to 9.9 today. - Continue with oral Vancomycin. Due to her C. diff and persistent diarrhea, we will discontinue the cefazolin and doxycycline #C diff infection - patient positive for C diff, continue oral vancomycin 250 mg q6 hours - stool culture pending. Ova & parasite stool testing were negative, except for an elevated stool lactoferrin. #Transaminitis - likely from dehydration -LFTs are still elevated but downtrending. GI is following. CT abdomen showed liver lesion, likely metastatic. Liver biopsy showed steatosis in 2004, but no liver lesions noted at that time. Hepatitis panel is normal, SHAHLA, anti-smooth muscle and antimitochondrial antibody pending #Hyopkalemia -Potassium level low at 3.0 today. Will supplement with oral potassium and recheck Disposition: Continued pain management and improvement in diarrhea before discharge Attending addendum: I have seen and examined the patient with the medical student and agree with the assessment and plan. The patient has improved pain in her left breast, it has improved to 6, toradol and morphine are working. She states her pain never goes down below a 6. Had four loose stools this morning Exam: Breast: very tender underneath left breast around 5:00 position. No erythema Abdomen: diffuse mild tenderness Lungs: wheezing noted on left side Plan: will add albuterol for wheezing. Discontinue cefazolin and doxycycline to see if diarrhea improves and evaluate if cellulitis or any GI symptoms worsen. Increase tramadol to 50 mg. D/c in am tomorrow likely
--- NOTE | 2020-02-20 15:11 | PDOC.MOPN ---
Interval History: pain improved, diarrhea controlled. - Vital Signs Vital Signs: Vital Signs (12 hours) Temp Pulse Resp BP BP Pulse Ox 02/20/20 11:20 96.9 F L 73 16 130/80 97 02/20/20 08:00 96.9 F L 88 16 166/99 H 97 02/20/20 03:43 97.4 F L 78 16 149/82 H 95 Weight Admit Weight 206 lb Weight 206 lb - Physical Exam General: Alert, Oriented x3, No acute distress HEENT: Atraumatic, PERRLA, EOMI, Mucous membr. moist/pink Lungs: Clear to auscultation, Normal air movement Cardiovascular: Regular rate, Normal S1, Normal S2, No murmurs, Gallops, Rubs Abdomen: Normal bowel sounds, Soft, No tenderness, No hepatospenomegaly, No masses Neurological: Normal gait, Normal speech, Strength at 5/5 X4 ext, Normal tone, Sensation intact, Cranial nerves 3-12 NL, Reflexes 2+ Psych/Mental Status: Mental status NL, Mood NL - Labs Result Diagrams: 02/20/20 06:54 02/21/20 05:38 Lab results: Laboratory Results - last 24 hr 02/20/20 06:54: Total Bilirubin 0.2, Direct Bilirubin 0.2, AST 68 H, ALT 45, Alkaline Phosphatase 174 H, Serum Total Protein 5.8 L, Albumin 2.8 L 02/20/20 06:54: WBC 9.9, RBC 3.23 L, Hgb 9.9 L, Hct 30.9 L, MCV 95.6, MCH 30.7, MCHC 32.1, RDW 13.4, Plt Count 318, MPV 7.3 L 02/20/20 06:54: Sodium 140, Potassium 3.0 L, Chloride 108 H, Carbon Dioxide 20 L, Anion Gap 15, BUN 11, Creatinine 0.76, Estimated GFR (MDRD) 83, Glucose 90, Calcium 7.9 02/20/20 06:54: Vancomycin Trough 21.7 02/19/20 04:34: SHAHLA Screen Negative, SHAHLA Scrn Qualitative Negative, SHAHLA Scrn Quantitative 0.3, SHAHLA & Anti-RAMONE New Method NEW METHOD , Anti-ds DNA IgG Ab 0.9, Anti-ds DNA Interp , Anti-Mitochondrial Ab 1.2, Mitochondria M2 Ab Intp Status: lab reviewed by me A/P - Problem (1) Breast cancer Status: Acute - Plan Plan: 1. prior liver biopsy in 2004 showed macrovesicular steatosis 2. breast biopsy positive for carcinoma 3. await HR/HER2 status 4. continue abx for c. diff 5. financial counselor to assist with insurance 6. ok to dc home in am and follow-up in clinic.
[2020-02-20] MEDS ORDERED: traMADol HCl 50 MG TAB PO PRN (15:31)
[2020-02-20] MEDS ORDERED: Potassium Chloride 20 MEQ TAB PO SCH (17:45)
[2020-02-20 19:12] LABS: Magnesium 1.8 mg/dL (1.6-2.6)
[2020-02-20 19:26] LABS: Potassium 2.8 mmol/L (3.5-5.1)
[2020-02-20] MEDS ORDERED: Electrolyte Replacement Protocol 1 EACH FS SCH (20:00)
[2020-02-20] MEDS ORDERED: Electrolyte Replacement Protocol FS PRN (20:15)
[2020-02-20] MEDS ORDERED: Potassium Chloride 40 MEQ in Sodium Chloride 0.9% 250 ML 250 ML IVPB SCH (20:15)
[2020-02-20] MEDS: Saccharomyces boulardii 250 MG CAP PO SCH (20:47)
--- NOTE | 2020-02-20 22:47 | PRG ---
DATE OF SERVICE: 02/20/2020 REASON FOR CONSULTATION: Clostridium difficile colitis. SUBJECTIVE: During the course of the day today, the patient had approximately 6 discrete episodes of liquid bowel movements without any blood. This was associated with a mild increase in her abdominal pain having a bowel movement, but currently states that her abdominal pain is doing better. She has already been evaluated by the Oncology Service with plans for the patient to follow up in the outpatient clinic upon discharge. OBJECTIVE: VITAL SIGNS: Temperature 97.6, pulse 72, blood pressure 139/87, respiratory rate 16, saturating 100% on room air. GENERAL: The patient is lying in bed, in no acute distress. Alert and oriented x4. CARDIOVASCULAR: Regular rate and rhythm. RESPIRATORY: Clear to auscultation bilaterally. ABDOMEN: Normoactive bowel sounds, soft. Tenderness to palpation in all abdominal quadrants. Mildly distended. EXTREMITIES: No cyanosis, clubbing, or edema. LABORATORY DATA: CBC with a white blood cell count of 9.9, hemoglobin 9.9, hematocrit 30.9, platelets 318. Chemistry with a sodium of 140, potassium 3, chloride 108, CO2 of 20, BUN 11, creatinine 0.76, glucose 90, AST 68, ALT 45, alkaline phosphatase 174, total bilirubin 0.2. IMAGING DATA: No current GI imaging is available for review. ASSESSMENT: 1. Multiple liver masses seen on imaging, likely metastatic breast cancer with biopsies now showing invasive ductal carcinoma. 2. Clostridium difficile colitis. RECOMMENDATIONS: 1. Continue with probiotics over the next 3 months. 2. Would continue the patient on a pulsed oral vancomycin taper, where the patient should be on oral vancomycin 250 mg every 6 hours x2 weeks, then 3 times daily for 1 week, then twice daily for a week, once a day for a week, then every other day for 7 doses and then every 3rd day for 7 doses. 3. Patient to follow up with the Oncology Service in the outpatient setting for further management of her metastatic breast cancer. 4. We will continue to trend her LFTs while inpatient and if rising, would need further imaging for possible obstruction of the biliary system. We will sign off at this time. Please call with any questions. Job ID: [id number]
[2020-02-20] MEDS ORDERED: Magnesium 2 GM/50 ML 1 GM in Premix Bag 1 BAG IVPB SCH (23:00)
[2020-02-21] MEDS: Morphine 2 MG/ML VIAL SLOW IVP PRN ×3 (00:34→08:39)
[2020-02-21] MEDS: Vancomycin HCl 25 MG/ML Oral PO SCH ×3 (00:40→11:20)
[2020-02-21] MEDS: metroNIDAZOLE 500 MG in Premix Bag 1 BAG IVPB SCH (05:03)
[2020-02-21 06:22] LABS: ALT (SGPT) 40 U/L (8-55); AST (SGOT) 73 U/L (5-34); Albumin 2.7 g/dL (3.5-5.0); Alkaline Phosphatase 164 U/L (40-110); Anion Gap 15 mmol/L (10-20); BUN (Urea Nitrogen) 10 mg/dL (7.0-18.7); Bilirubin, Direct 0.2 mg/dL (0.1-0.3); Bilirubin, Total 0.3 mg/dL (0.2-1.2); Calc. Creatinine Clearance 153 mL/min (70-130); Calcium 8.2 mg/dL (7.8-10.44); Carbon Dioxide 20 mmol/L (22-29); Chloride 111 mmol/L (98-107); Glucose 81 mg/dL (70-105); Potassium 3.2 mmol/L (3.5-5.1); Protein, Total 5.9 g/dL (6.0-8.3); Sodium 143 mmol/L (136-145)
[2020-02-21] MEDS ORDERED: Magnesium 2 GM/50 ML 2 GM in Premix Bag 1 BAG IVPB SCH (06:30)
[2020-02-21] MEDS: Ketorolac Tromethamine 30 MG/ML VIAL IVP PRN (07:39)
[2020-02-21] MEDS ORDERED: Potassium Chloride 20 MEQ in Premix Bag 1 BAG IVPB SCH (08:00)
[2020-02-21] MEDS: Famotidine/PF 20 mg/2ml Vial SLOW IVP SCH (08:40)
[2020-02-21] MEDS ORDERED: Potassium Chloride 20 MEQ TAB PO SCH (09:30)
[2020-02-21 13:29] VITALS: BP 162/89; TEMP 98.1
--- NOTE | 2020-02-21 19:58 | PDOC.DS.DS ---
Provider - Provider Date of Admission: 02/17/20 19:56 Date of Discharge: 02/21/20 Admitting Provider: Eran Dickerson MD Primary Care Physician: Micheal Lopez MD Course - Hospital Course Hospital Course: Discharge Diagnoses: 1. Sepsis secondary to C. difficile infection 2. 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 Hypokalemia Brief HPI: This is a 44-year-old female with a past medical history of IBS, anxiety, depression presented to the emergency room with cough and green sputum. She also has been reporting fever, abdominal pain and diarrhea. Patient also states that she has been having left breast pain and has felt a lump in her left breast for almost 1 year. She presented to the emergency room his temperature was 102.6 and she was tachycardic. She was started on cefepime and Flagyl and admitted to the hospital for further work-up. Hospital course: Sepsis secondary to C. difficile infection: Patient was initially started on cefepime and Flagyl. There was initial concern for mastitis as well and she was given IV vancomycin for 2 days due to erythema around her breast. However after discovery of C. difficile infection, she was started on oral vancomycin and antibiotics were discontinued with no worsening of her breast pain. She continues to have 6 episodes of diarrhea. Since this is her second episode of C. difficile, GI was consulted and the patient was discharged on a taper dose of oral vancomycin to 50 mg every 6 hours x14 days then to 50 mg 3 times daily x7 days then twice daily x7 days then daily x7 days and every other day x7 doses then every 3 days x 7 doses. She was also discharged with probiotics and zofran. Blood cultures and urine cultures were negative. Chest x-ray showed no evidence of pneumonia. 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 Ultrasound guided biopsy was done of the left breast and axilla which showed invasive ductal carcinoma with metastases to the left axillary lymph node. The skin of her abdomen showed extensive liver lesions. Bone scan showed osseous metastatic disease. Oncology was consulted. Given her active C. difficile infection, they will follow up with her as an outpatient and consideration of a Mediport placement at that time. She was discharged with tramadol as needed for pain. Hypokalemia: Patient had potassium as low as 2.8 while in hospital. Her magnesium level is 1.8. She is given potassium supplementation on a daily basis. She be discharged with potassium 40 M EQ daily as long as she has diarrhea. She should get a repeat potassium level in a week. Transaminitis: Patient had elevated T's on admission. These improved gradually with IV fluids. GI was consulted. Hepatitis panel was normal, and a screen, anti-smooth muscle and antimitochondrial antibody were negative. Patient should get repeat LFTs in a week. Pertinent Studies: CT chest 02/16: Left breast mass with left axillary adenopathy. Stable areas of nodularity within both lung butts. Slightly prominent right paratracheal lymph node and slightly enlarged prevascular node. Pleural-based masses seen in the lung butts. Innumerable liver lesions. Left ovarian cyst 3 cm. Chest x-ray 02/16: Slightly increased interstitial change in the bases probably on the basis of atelectasis Left breast ultrasound and left axillary ultrasound 02/17: Left breast malignancy suspected along with a necrotic/metastatic left breast lymph node Bone scan 02/17: Findings suspicious for osseous metastatic disease on T12, L1, L2 and left proximal femur Mammogram 02/17: Spiculated mass in the upper outer left breast - Labs Lab Results: 02/20/20 06:54 02/21/20 05:38 Abnormal Lab Results - Last 48 hrs 02/20/20 06:54: Potassium 3.0 L, Chloride 108 H, Carbon Dioxide 20 L 02/20/20 06:54: RBC 3.23 L, Hgb 9.9 L, Hct 30.9 L, MPV 7.3 L 02/20/20 06:54: AST 68 H, Alkaline Phosphatase 174 H, Serum Total Protein 5.8 L, Albumin 2.8 L 02/20/20 18:28: Potassium 2.8 L* 02/21/20 05:38: Potassium 3.2 L, Chloride 111 H, Carbon Dioxide 20 L, AST 73 H, Alkaline Phosphatase 164 H, Serum Total Protein 5.9 L, Albumin 2.7 L Microbiology - Entire Visit 02/19/20 20:17 Stool Stool Culture - Final Yeast species 02/19/20 20:17 Stool Rapid Parasite Screen - Final 02/19/20 20:17 Stool Stool Lactoferrin - Final 02/19/20 20:17 Stool Campylobacter Antigen Assay - Final 02/19/20 20:17 Stool Shiga Toxin Test - Final 02/17/20 17:23 Urine clean catch Urine Culture - Final 02/17/20 15:36 Venous blood - Right Hand Blood Culture - Preliminary NO GROWTH AT 48 HOURS 02/17/20 15:15 Venous blood - Left Arm Blood Culture - Preliminary NO GROWTH AT 48 HOURS 02/18/20 08:09 Stool - Pending C. difficile GDH Antigen & Toxins - Final 02/18/20 08:09 Stool - Pending Clostridioides difficile Toxins A&B (PCR) - Final - Physical Exam Vitals: Vital Signs (12 hours) Temp Pulse Resp BP Pulse Ox 02/21/20 12:00 98.1 F 98 20 162/89 H 97 02/21/20 08:00 100 Weight Admit Weight 206 lb Weight 206 lb Physical Exam: The patient was seen and examined on the day of discharge. General: Patient is alert awake oriented x3, overweight CVS: Regular rate and rhythm with no murmurs rubs or gallops Lungs: Clear to auscultation bilaterally Abdomen: Positive bowel sounds, soft nontender, nondistended Extremities: No edema Breast: Mild tenderness to palpation at the 5 o'clock position of the left breast. There is no erythema or discharge Problem - Discharge Plan Plan of Treatment: Patient to follow-up with her oncologist after completion of treatment of C. difficile infection. She should follow with her PCP in a week. - Time spent with Patient (mins): 40 Plan - Discharge Medications Prescriptions: Saccharomyces boulardii [Florastor] 250 mg PO HS #30 cap Potassium Chloride [K-Dur] 40 meq PO DAILY #60 tab Magnesium 400 mg PO DAILY PRN #28 tablet PRN Reason: Diarrhea/Loose Stools traMADol HCl [Ultram] 50 mg PO Q6H PRN #12 tab PRN Reason: Severe Pain (7-10) Vancomycin HCl 250 mg PO Q6H #104 capsule Ondansetron [Zofran ODT] 4 mg SL Q6H PRN #28 tab PRN Reason: Nausea Home Medications: Medication Instructions Recorded Confirmed Type ALPRAZolam [Xanax] 0.5 mg PO BID PRN 10/22/13 01/08/20 History Carisoprodol [Soma] 250 mg PO QID PRN 10/22/13 01/08/20 History Diphenoxylate HCl/Atropine 2 tab PO TID 10/22/13 01/08/20 History [Lomotil] Pantoprazole [Protonix] 40 mg PO DAILY 10/22/13 01/08/20 History Venlafaxine HCl [Venlafaxine HCl 150 mg PO BID 01/09/20 01/09/20 History ER] Magnesium 400 mg PO DAILY PRN #28 tablet 02/21/20 Rx Ondansetron [Zofran ODT] 4 mg SL Q6H PRN #28 tab 02/21/20 Rx Potassium Chloride [K-Dur] 40 meq PO DAILY #60 tab 02/21/20 Rx Saccharomyces boulardii [Florastor] 250 mg PO HS #30 cap 02/21/20 Rx Vancomycin HCl 250 mg PO Q6H #104 capsule 02/21/20 Rx traMADol HCl [Ultram] 50 mg PO Q6H PRN #12 tab 02/21/20 Rx Allergies: erythromycin base [Erythromycin Base] Allergy (Severe, Verified 01/08/20 17:24) Anaphylaxis moxifloxacin HCl [From Avelox] Allergy (Severe, Verified 01/08/20 17:24) Anaphylaxis Sulfa (Sulfonamide Antibiotics) Allergy (Severe, Verified 01/08/20 17:24) Anaphylaxis - Discharge Instructions Discharge Instructions:: Notify your physician if you experience any: -temperature greater than 100.4F -nausea/vomiting -shortness of breath or chest pain that in unrelieved with rest -new lumps, bumps, bruises -blood in urine or stool -questions or concerns that you may have Activity:: Activity as Tolerated Nourishment:: Heart Healthy Diet - Follow up Plan Referrals: Dasha Do MD [Active] - 03/02/20 10:45 am Micheal Lopez MD [Primary Care Provider] - (Call after discharge to schedule follow-up appointment ) Disposition: HOME Quality - Care Measures CORE MEASURES:: N/A
== END 2020-02-21 14:02 | disposition home or self-care (01) | DRG 597 ==
LOC: ERS 14:44 → ERHOLD 19:56 → ONC 02-18 19:13
PROVIDERS: ADMIT Internal Medicine; ATTEND Internal Medicine
PROC: 0HBU3ZX Excision of Left Breast, Percutaneous Approach, Diagnostic (ICD-10-PCS; principal; 2020-02-18)
PROC: 07D63ZX Extraction of Left Axillary Lymphatic, Percutaneous Approach, Diagnostic (ICD-10-PCS; 2020-02-18)
DX: C50.912 Malignant neoplasm of unspecified site of left female breast (principal); J98.11 Atelectasis; A41.9 Sepsis, unspecified organism; A04.72 Enterocolitis due to Clostridium difficile, not specified as recurrent; C78.7 Secondary malignant neoplasm of liver and intrahepatic bile duct; C78.00 Secondary malignant neoplasm of unspecified lung; C77.3 Secondary and unspecified malignant neoplasm of axilla and upper limb lymph nodes; C79.51 Secondary malignant neoplasm of bone; I96 Gangrene, not elsewhere classified; Z20.828 Contact with and (suspected) exposure to other viral communicable diseases; R74.01 Elevation of levels of liver transaminase levels; D50.9 Iron deficiency anemia, unspecified; I10 Essential (primary) hypertension; J44.9 Chronic obstructive pulmonary disease, unspecified; K21.9 Gastro-esophageal reflux disease without esophagitis; F41.9 Anxiety disorder, unspecified; F32.9 Major depressive disorder, single episode, unspecified; G89.29 Other chronic pain; E87.6 Hypokalemia; E83.42 Hypomagnesemia; Z90.49 Acquired absence of other specified parts of digestive tract; Z98.51 Tubal ligation status; Z88.1 Allergy status to other antibiotic agents; Z88.2 Allergy status to sulfonamides; Z79.899 Other long term (current) drug therapy; Z87.891 Personal history of nicotine dependence
CPT/HCPCS: 19083; 36415; 38505; 71045; 71260; 74177; 78306; 80048; 80053; 80074; 80076; 80202; 80307; 81003; 82607; 82728; 82746; 83516; 83540; 83550; 83605; 83630; 83735; 84443; 85025; 85027; 85610; 86038; 86225; 87040; 87045; 87046; 87086; 87324; 87328; 87329; 87427; 87449; 87493; 88305; 93005; 94760; 96365; 96366; 96367; 96368; 96375; 96376; A9503; J0690; J0692; J1885; J1956; J2270; J2405; J2550; J3370; J3475; J3480; J3490; J7050; Q9967; S0028; U0002

== ENCOUNTER 2020-05-25 10:38 | Inpatient (IN) | payer MEDICAID ==
[2020-05-25 12:00] LABS: Hemoglobin 12.4 g/dL (12.0-16.0); Mean Corpuscular HGB CONC 32.7 g/dL (32.0-36.0); Mean Corpuscular Hemoglobin 30.7 pg (27.0-31.0); Mean Corpuscular Volume 93.7 fL (78.0-98.0); Mean Platelet Volume 8.8 fL (7.4-10.4); Platelet Count 202 thou/uL (130-400); RBC Distribution Width 17.3 % (11.5-14.5); Red Blood Cell (RBC) Count 4.05 mill/uL (4.20-5.40); White Blood Cell (WBC) Count 23.1 thou/uL (4.8-10.8)
[2020-05-25] MEDS ORDERED: Sodium Chloride 0.9% 2,000 ML IV SCH (12:00)
[2020-05-25 12:24] LABS: ALT (SGPT) 264 U/L (8-55); AST (SGOT) 1358 U/L (5-34); Albumin 2.3 g/dL (3.5-5.0); Alkaline Phosphatase 575 U/L (40-110); Anion Gap 24 mmol/L (10-20); BUN (Urea Nitrogen) 17 mg/dL (7.0-18.7); Bilirubin, Total 2.4 mg/dL (0.2-1.2); Calc. Creatinine Clearance 0 mL/min (70-130); Calcium 9.9 mg/dL (7.8-10.44); Carbon Dioxide 16 mmol/L (22-29); Chloride 91 mmol/L (98-107); Globulin 3.9 g/dL (2.4-3.5); Glucose 64 mg/dL (70-105); Potassium 3.7 mmol/L (3.5-5.1); Protein, Total 6.2 g/dL (6.0-8.3); Sodium 127 mmol/L (136-145)
[2020-05-25] MEDS ORDERED: Norepinephrine 8 MG/0.9% NS 0 ML ONE (12:28)
[2020-05-25 12:31] LABS: Bilirubin Negative (Negative); Blood, Urine Negative (Negative); Clarity Turbid (Clear); Glucose, Urine (Dipstick) Normal (Negative); Ketone, Urine Negative (Negative); Leukocyte Negative Leu/uL (Negative); Nitrite Negative (Negative); Protein, Urine (Dipstick) 20 mg/dL (Neg-Trace); Specific Gravity, Urine 1.016 (1.002-1.036); Urobilinogen Normal mg/dL (Less than 2); pH, Urine 5.5 (5.0-9.0)
[2020-05-25] MEDS ORDERED: Cefepime 2 GM VIAL ONE (12:34)
[2020-05-25 12:42] LABS: Band 20 % (5-11); Lymphocytes 2 % (21-51); MDiff Complete? YES; Monocytes 7 % (0-10); Neutrophil 71 % (42-75); Platelet Morphology Comment Appears Adequate; RBC Morphology Normal
[2020-05-25] MEDS ORDERED: VANCOMYCIN 2 GRAM/400 ML BAG 2 GM in Premix Bag 1 BAG IVPB SCH (12:45)
[2020-05-25] MEDS ORDERED: Dextrose 50% Abboject 50 ML SYRINGE ONE (13:18)
[2020-05-25 13:21] LABS: SARS-CoV-2 NAA Rapid Test Not Detected (NotDetected)
[2020-05-25] MEDS ORDERED: Norepinephrine 8 MG/0.9% NS 250 ML IVPB SCH (14:30)
[2020-05-25] MEDS: Sodium Chloride 0.9% 1,000 ML IV SCH ×2 (15:14→23:15)
[2020-05-25 15:15] LABS: CK (CPK) 75 U/L (29-168); Lipase 95 U/L (8-78)
[2020-05-25] MEDS: Heparin 5,000 UNITS/ML VIAL SC SCH ×2 (15:22→21:10)
[2020-05-25 15:26] LABS: Lactic Acid 10.4 mmol/L (0.5-2.2)
[2020-05-25] MEDS ORDERED: Norepinephrine 8 MG/0.9% NS 250 ML ONE (15:30)
[2020-05-25 15:39] LABS: CKMB 2.9 ng/mL (0-6.6)
[2020-05-25] MEDS ORDERED: Morphine 4 MG/ML VIAL SLOW IVP PRN (16:45)
[2020-05-25] MEDS ORDERED: Morphine 2 MG/ML VIAL SLOW IVP PRN (16:45)
[2020-05-25] MEDS: HYDROcodone/Acetaminophen 5/325 mg Tablet PO PRN (21:11)
[2020-05-25] MEDS ORDERED: Famotidine 20 MG TAB PO SCH (21:15)
[2020-05-25 21:29] LABS: Lactic Acid 7.4 mmol/L (0.5-2.2)
[2020-05-26] MEDS: Cefepime 1 GM in Sodium Chloride 0.9% 100 ML IVPB SCH ×2 (01:00→13:30)
[2020-05-26] MEDS: Acetaminophen 325 MG TAB PO PRN (01:55)
[2020-05-26 04:05] LABS: Lactic Acid 6.8 mmol/L (0.5-2.2)
[2020-05-26 04:08] LABS: ALT (SGPT) 221 U/L (8-55); AST (SGOT) 970 U/L (5-34); Albumin 2.1 g/dL (3.5-5.0); Alkaline Phosphatase 477 U/L (40-110); Bilirubin, Total 2.5 mg/dL (0.2-1.2); Protein, Total 5.5 g/dL (6.0-8.3)
[2020-05-26 04:16] LABS: Anion Gap 20 mmol/L (10-20); BUN (Urea Nitrogen) 18 mg/dL (7.0-18.7); Calc. Creatinine Clearance 74 mL/min (70-130); Calcium 8.4 mg/dL (7.8-10.44); Carbon Dioxide 13 mmol/L (22-29); Chloride 101 mmol/L (98-107); Glucose 56 mg/dL (70-105); Potassium 4.1 mmol/L (3.5-5.1); Sodium 130 mmol/L (136-145)
[2020-05-26] MEDS ORDERED: Dextrose 50% Abboject 50 ML SYRINGE ONE (04:50)
[2020-05-26 05:33] LABS: Band 13 % (5-11); Hemoglobin 10.9 g/dL (12.0-16.0); Lymphocytes 14 % (21-51); MDiff Complete? YES; Mean Corpuscular HGB CONC 31.4 g/dL (32.0-36.0); Mean Corpuscular Hemoglobin 29.5 pg (27.0-31.0); Mean Corpuscular Volume 93.9 fL (78.0-98.0); Mean Platelet Volume 8.5 fL (7.4-10.4); Monocytes 9 % (0-10); Neutrophil 64 % (42-75); Platelet Count 201 thou/uL (130-400); RBC Distribution Width 17.7 % (11.5-14.5); Red Blood Cell (RBC) Count 3.68 mill/uL (4.20-5.40); White Blood Cell (WBC) Count 22.8 thou/uL (4.8-10.8)
[2020-05-26] MEDS: Sodium Chloride 0.9% 1,000 ML IV SCH (06:19)
[2020-05-26] MEDS: Heparin 5,000 UNITS/ML VIAL SC SCH ×3 (08:54→21:32)
[2020-05-26] MEDS: Dextrose 5 % And 0.9 % NaCl 1,000 ML IV SCH ×3 (08:54→21:28)
[2020-05-26] MEDS ORDERED: Prevnar 13-Val Conj/PF 0.5 ML SYRINGE IM ONE (09:00)
[2020-05-26] MEDS ORDERED: Famotidine 20 MG TAB PO SCH (09:00)
[2020-05-26] MEDS ORDERED: FLU VACC QS2020-21(6MOS UP)/PF 60 MCG/0.5 ML SYRINGE IM ONE (09:00)
[2020-05-26] MEDS: traMADol HCl 50 MG TAB PO PRN (10:53)
[2020-05-26] MEDS: Hydrocortisone Sod Succ/PF 100 mg/2 ml Vial IVP SCH ×2 (10:54→16:59)
[2020-05-26] MEDS: VANCOMYCIN 1.25 GM/250 ML BAG 1.25 GM in Premix Bag 1 BAG IVPB SCH (14:49)
[2020-05-26 18:18] LABS: Lactic Acid 4.5 mmol/L (0.5-2.2)
[2020-05-26] MEDS: Saccharomyces boulardii 250 MG CAP PO SCH (21:33)
[2020-05-26] MEDS: Famotidine 20 MG TAB PO SCH (21:33)
[2020-05-27] MEDS: Hydrocortisone Sod Succ/PF 100 mg/2 ml Vial IVP SCH ×3 (00:56→08:02)
[2020-05-27] MEDS: Cefepime 1 GM in Sodium Chloride 0.9% 100 ML IVPB SCH ×2 (00:57→11:55)
[2020-05-27 03:51] LABS: Lactic Acid 3.8 mmol/L (0.5-2.2)
[2020-05-27 04:09] LABS: Anion Gap 17 mmol/L (10-20); BUN (Urea Nitrogen) 19 mg/dL (7.0-18.7); Calc. Creatinine Clearance 106 mL/min (70-130); Calcium 7.9 mg/dL (7.8-10.44); Carbon Dioxide 13 mmol/L (22-29); Chloride 106 mmol/L (98-107); Glucose 95 mg/dL (70-105); Potassium 3.5 mmol/L (3.5-5.1); Sodium 132 mmol/L (136-145)
[2020-05-27 04:41] LABS: Band 8 % (5-11); Hemoglobin 10.4 g/dL (12.0-16.0); Lymphocytes 11 % (21-51); MDiff Complete? YES; Mean Corpuscular HGB CONC 32.1 g/dL (32.0-36.0); Mean Corpuscular Hemoglobin 30.3 pg (27.0-31.0); Mean Corpuscular Volume 94.2 fL (78.0-98.0); Mean Platelet Volume 8.5 fL (7.4-10.4); Monocytes 7 % (0-10); Neutrophil 74 % (42-75); Platelet Count 193 thou/uL (130-400); RBC Distribution Width 17.7 % (11.5-14.5); Red Blood Cell (RBC) Count 3.45 mill/uL (4.20-5.40); White Blood Cell (WBC) Count 19.7 thou/uL (4.8-10.8)
[2020-05-27] MEDS: Dextrose 5 % And 0.9 % NaCl 1,000 ML IV SCH (06:22)
[2020-05-27] MEDS: Famotidine 20 MG TAB PO SCH (08:02)
[2020-05-27] MEDS: Heparin 5,000 UNITS/ML VIAL SC SCH ×2 (08:02→15:12)
[2020-05-27] MEDS: Dextrose 5%-Lactated Ringers 1,000 ML IV SCH ×2 (09:45→15:12)
[2020-05-27 13:54] LABS: Vancomycin, Trough 14.8 ug/mL
[2020-05-27] MEDS: VANCOMYCIN 1.25 GM/250 ML BAG 1.25 GM in Premix Bag 1 BAG IVPB SCH (15:14)
[2020-05-27] MEDS ORDERED: Lorazepam 1 MG TAB PO PRN (15:33)
[2020-05-27] MEDS: Lorazepam 0.5 MG TAB PO SCH (16:58)
[2020-05-28] MEDS: Dextrose 5%-Lactated Ringers 1,000 ML IV SCH ×3 (00:03→20:50)
[2020-05-28] MEDS: Heparin 5,000 UNITS/ML VIAL SC SCH (03:39)
[2020-05-28] MEDS: Saccharomyces boulardii 250 MG CAP PO SCH ×2 (03:39→20:55)
[2020-05-28] MEDS: Famotidine 20 MG TAB PO SCH ×3 (03:39→20:55)
[2020-05-28] MEDS: Hydrocortisone Sod Succ/PF 100 mg/2 ml Vial IVP SCH ×3 (03:39→21:00)
[2020-05-28] MEDS: Cefepime 1 GM in Sodium Chloride 0.9% 100 ML IVPB SCH ×2 (03:40→12:46)
[2020-05-28] MEDS: Lorazepam 0.5 MG TAB PO SCH ×4 (03:40→18:34)
[2020-05-28 04:53] LABS: Hemoglobin 12.1 g/dL (12.0-16.0); Mean Corpuscular HGB CONC 32.8 g/dL (32.0-36.0); Mean Corpuscular Hemoglobin 31.1 pg (27.0-31.0); Mean Corpuscular Volume 95.1 fL (78.0-98.0); Mean Platelet Volume 8.7 fL (7.4-10.4); Platelet Count 207 thou/uL (130-400); RBC Distribution Width 18.2 % (11.5-14.5)
[2020-05-28 04:55] LABS: Anion Gap 18 mmol/L (10-20); BUN (Urea Nitrogen) 24 mg/dL (7.0-18.7); Calc. Creatinine Clearance 94 mL/min (70-130); Carbon Dioxide 13 mmol/L (22-29); Chloride 110 mmol/L (98-107); Glucose 92 mg/dL (70-105); Potassium 3.6 mmol/L (3.5-5.1); Sodium 137 mmol/L (136-145)
[2020-05-28 05:24] LABS: Band 15 % (5-11); Lymphocytes 11 % (21-51); MDiff Complete? YES; Monocytes 9 % (0-10); Neutrophil 65 % (42-75); White Blood Cell (WBC) Count 24.6 thou/uL (4.8-10.8)
[2020-05-28] MEDS: Enoxaparin Sodium 40 MG/0.4 ML SYRINGE SC SCH (09:46)
[2020-05-28] MEDS: Sodium Bicarbonate Tab 325 MG TAB PO SCH ×2 (09:46→20:55)
[2020-05-28] MEDS: VANCOMYCIN 1.25 GM/250 ML BAG 1.25 GM in Premix Bag 1 BAG IVPB SCH (13:35)
[2020-05-28] MEDS ORDERED: Lorazepam 2 MG/ML VIAL SLOW IVP SCH (14:00)
[2020-05-28] MEDS ORDERED: Ziprasidone 20 MG VIAL IM SCH (18:00)
[2020-05-28] MEDS: traMADol HCl 50 MG TAB PO PRN (20:55)
[2020-05-28] MEDS: Ziprasidone 20 MG VIAL IM PRN (21:00)
[2020-05-29] MEDS: Cefepime 1 GM in Sodium Chloride 0.9% 100 ML IVPB SCH ×2 (00:30→12:21)
[2020-05-29] MEDS: Lorazepam 0.5 MG TAB PO SCH ×5 (00:40→17:39)
[2020-05-29] MEDS: Dextrose 5%-Lactated Ringers 1,000 ML IV SCH ×3 (00:40→18:30)
[2020-05-29 04:35] LABS: Anion Gap 15 mmol/L (10-20); BUN (Urea Nitrogen) 27 mg/dL (7.0-18.7); Calc. Creatinine Clearance 109 mL/min (70-130); Calcium 8.7 mg/dL (7.8-10.44); Carbon Dioxide 14 mmol/L (22-29); Chloride 112 mmol/L (98-107); Glucose 88 mg/dL (70-105); Potassium 3.5 mmol/L (3.5-5.1); Sodium 137 mmol/L (136-145)
[2020-05-29 04:45] LABS: Hemoglobin 11.4 g/dL (12.0-16.0); Lymphocytes 26 % (21-51); MDiff Complete? YES; Mean Corpuscular HGB CONC 31.4 g/dL (32.0-36.0); Mean Corpuscular Hemoglobin 29.3 pg (27.0-31.0); Mean Corpuscular Volume 93.3 fL (78.0-98.0); Monocytes 11 % (0-10); Neutrophil 62 % (42-75); Platelet Count 181 thou/uL (130-400); Platelet Morphology Comment Appears Adequate; RBC Distribution Width 18.3 % (11.5-14.5); RBC Morphology Normal; Reactive Lymphocytes 1 % (0-10); Red Blood Cell (RBC) Count 3.89 mill/uL (4.20-5.40); White Blood Cell (WBC) Count 19.8 thou/uL (4.8-10.8)
[2020-05-29] MEDS: Hydrocortisone Sod Succ/PF 100 mg/2 ml Vial IVP SCH ×2 (08:17→20:12)
[2020-05-29] MEDS: Enoxaparin Sodium 40 MG/0.4 ML SYRINGE SC SCH (08:17)
[2020-05-29] MEDS: Famotidine 20 MG TAB PO SCH ×2 (08:18→20:10)
[2020-05-29] MEDS: Sodium Bicarbonate Tab 325 MG TAB PO SCH ×2 (08:18→20:10)
[2020-05-29] MEDS ORDERED: Haloperidol Lactate 5 MG/ML VIAL SLOW IVP SCH (13:45)
[2020-05-29] MEDS: VANCOMYCIN 1.25 GM/250 ML BAG 1.25 GM in Premix Bag 1 BAG IVPB SCH (14:02)
[2020-05-29 14:29] LABS: Vancomycin, Trough 20.7 ug/mL
[2020-05-29] MEDS: Saccharomyces boulardii 250 MG CAP PO SCH (20:10)
[2020-05-29] MEDS: Ziprasidone 20 MG VIAL IM PRN (20:33)
[2020-05-30] MEDS: Lorazepam 0.5 MG TAB PO SCH ×3 (00:26→12:11)
[2020-05-30] MEDS: Dextrose 5%-Lactated Ringers 1,000 ML IV SCH ×4 (00:30→23:39)
[2020-05-30] MEDS: Cefepime 1 GM in Sodium Chloride 0.9% 100 ML IVPB SCH ×3 (01:00→23:39)
[2020-05-30 05:45] LABS: Anion Gap 13 mmol/L (10-20); BUN (Urea Nitrogen) 29 mg/dL (7.0-18.7); Calc. Creatinine Clearance 117 mL/min (70-130); Calcium 8.5 mg/dL (7.8-10.44); Carbon Dioxide 15 mmol/L (22-29); Chloride 114 mmol/L (98-107); Glucose 100 mg/dL (70-105); Potassium 3.1 mmol/L (3.5-5.1); Sodium 139 mmol/L (136-145)
[2020-05-30 05:51] LABS: Hemoglobin 9.7 g/dL (12.0-16.0); Lymphocytes 10 % (21-51); MDiff Complete? YES; Mean Corpuscular HGB CONC 31.2 g/dL (32.0-36.0); Mean Corpuscular Hemoglobin 29.1 pg (27.0-31.0); Mean Corpuscular Volume 93.2 fL (78.0-98.0); Mean Platelet Volume 8.6 fL (7.4-10.4); Monocytes 2 % (0-10); Neutrophil 88 % (42-75); Platelet Count 203 thou/uL (130-400); Platelet Morphology Comment Appears Adequate; RBC Distribution Width 18.7 % (11.5-14.5); Red Blood Cell (RBC) Count 3.34 mill/uL (4.20-5.40); White Blood Cell (WBC) Count 16.5 thou/uL (4.8-10.8)
[2020-05-30] MEDS: Famotidine 20 MG TAB PO SCH (09:16)
[2020-05-30] MEDS: Enoxaparin Sodium 40 MG/0.4 ML SYRINGE SC SCH (09:29)
[2020-05-30] MEDS: Hydrocortisone Sod Succ/PF 100 mg/2 ml Vial IVP SCH ×2 (09:29→20:25)
[2020-05-30] MEDS: hydrALAZINE 20 MG/ML VIAL SLOW IVP PRN (12:11)
[2020-05-30] MEDS ORDERED: Midazolam HCl 2 mg/2 ml Vial ONE (12:24)
[2020-05-30] MEDS ORDERED: Fentanyl 100 MCG/2 ML VIAL ONE (12:24)
[2020-05-30] MEDS ORDERED: Morphine 2 MG/ML VIAL SLOW IVP PRN (12:30)
[2020-05-30] MEDS ORDERED: Sodium Chloride 0.9% (PF) 10 ML VIAL FS PRN (12:45)
[2020-05-30] MEDS ORDERED: Metoprolol Tartrate 5 MG/5 ML VIAL IVP SCH (12:45)
[2020-05-30] MEDS: Ziprasidone 20 MG VIAL IM PRN (12:45)
[2020-05-30] MEDS ORDERED: Magnevist 469MG/ML 20 ML VIAL ONE (12:47)
[2020-05-30] MEDS ORDERED: Ondansetron PF 4 MG/2 ML Vial ONE (13:00)
[2020-05-30] MEDS ORDERED: PROPOFOL 200 MG/20 ML VIAL ONE (13:00)
[2020-05-30] MEDS ORDERED: Lidocaine 1% PF 5 ML VIAL ONE (13:00)
[2020-05-30] MEDS ORDERED: Dexamethasone 20 MG/5 ML VIAL ONE (13:00)
[2020-05-30] MEDS: VANCOMYCIN 1.25 GM/250 ML BAG 1.25 GM in Premix Bag 1 BAG IVPB SCH (15:23)
[2020-05-30] MEDS ORDERED: Potassium Chloride 40 MEQ in Sodium Chloride 0.9% 250 ML 250 ML IVPB SCH (17:45)
[2020-05-30] MEDS: Metoprolol Tartrate 5 MG/5 ML VIAL IVP SCH ×2 (18:12→23:39)
[2020-05-30] MEDS: Saccharomyces boulardii 250 MG CAP PO SCH (20:25)
[2020-05-31] MEDS: Metoprolol Tartrate 5 MG/5 ML VIAL IVP SCH ×3 (05:24→18:21)
[2020-05-31 06:24] LABS: Hemoglobin 10.9 g/dL (12.0-16.0); Mean Corpuscular Volume 93.9 fL (78.0-98.0); Mean Platelet Volume 8.2 fL (7.4-10.4); Platelet Count 223 thou/uL (130-400); RBC Distribution Width 19.4 % (11.5-14.5); Red Blood Cell (RBC) Count 3.64 mill/uL (4.20-5.40); White Blood Cell (WBC) Count 17.2 thou/uL (4.8-10.8)
[2020-05-31 06:40] LABS: Anion Gap 17 mmol/L (10-20); BUN (Urea Nitrogen) 30 mg/dL (7.0-18.7); Calc. Creatinine Clearance 108 mL/min (70-130); Calcium 8.8 mg/dL (7.8-10.44); Carbon Dioxide 13 mmol/L (22-29); Chloride 118 mmol/L (98-107); Glucose 113 mg/dL (70-105); Potassium 3.7 mmol/L (3.5-5.1); Sodium 144 mmol/L (136-145)
[2020-05-31 06:50] LABS: Hypochromia SLIGHT = 6-15 cells (100X) (0-5/hpf); Lymphocytes 14 % (21-51); MDiff Complete? YES; Monocytes 15 % (0-10); Neutrophil 71 % (42-75); Platelet Morphology Comment Appears Adequate
[2020-05-31] MEDS: Enoxaparin Sodium 40 MG/0.4 ML SYRINGE SC SCH (09:44)
[2020-05-31] MEDS: Hydrocortisone Sod Succ/PF 100 mg/2 ml Vial IVP SCH ×2 (09:44→20:23)
[2020-05-31] MEDS: Pantoprazole 40 MG VIAL IVP SCH (09:45)
[2020-05-31] MEDS: Dextrose 5%-Lactated Ringers 1,000 ML IV SCH ×2 (09:48→18:21)
[2020-05-31] MEDS: Cefepime 1 GM in Sodium Chloride 0.9% 100 ML IVPB SCH (12:38)
[2020-05-31 13:22] LABS: Vancomycin, Trough 23.2 ug/mL
[2020-05-31] MEDS ORDERED: Vancomycin 1 GM in Premix Bag 1 BAG IVPB SCH (15:00)
[2020-05-31] MEDS: VANCOMYCIN 1.25 GM/250 ML BAG 1.25 GM in Premix Bag 1 BAG IVPB SCH (15:25)
[2020-05-31] MEDS: Saccharomyces boulardii 250 MG CAP PO SCH (20:23)
[2020-06-01] MEDS: Cefepime 1 GM in Sodium Chloride 0.9% 100 ML IVPB SCH (00:05)
[2020-06-01] MEDS: Metoprolol Tartrate 5 MG/5 ML VIAL IVP SCH ×4 (00:06→17:26)
[2020-06-01] MEDS: Dextrose 5%-Lactated Ringers 1,000 ML IV SCH ×3 (00:06→17:26)
[2020-06-01] MEDS: hydrALAZINE 20 MG/ML VIAL SLOW IVP PRN (04:10)
[2020-06-01] MEDS: Enoxaparin Sodium 40 MG/0.4 ML SYRINGE SC SCH ×2 (08:50→20:31)
[2020-06-01] MEDS: Hydrocortisone Sod Succ/PF 100 mg/2 ml Vial IVP SCH (08:50)
[2020-06-01] MEDS: Pantoprazole 40 MG VIAL IVP SCH (08:51)
[2020-06-01] MEDS: HYDROcodone/Acetaminophen 5/325 mg Tablet PO PRN (08:54)
[2020-06-01] MEDS ORDERED: Labetalol HCl 100 MG/20 ML VIAL SLOW IVP SCH (11:15)
[2020-06-01] MEDS: Megestrol Acetate 40 MG TAB PO SCH (17:25)
[2020-06-01] MEDS: Saccharomyces boulardii 250 MG CAP PO SCH (20:30)
[2020-06-01] MEDS: Dexamethasone 4 MG TAB PO SCH (20:30)
[2020-06-02] MEDS: Metoprolol Tartrate 5 MG/5 ML VIAL IVP SCH ×3 (00:14→13:11)
[2020-06-02] MEDS: Dextrose 5%-Lactated Ringers 1,000 ML IV SCH ×2 (00:16→08:38)
[2020-06-02] MEDS: Dexamethasone 4 MG TAB PO SCH ×2 (07:59→21:26)
[2020-06-02] MEDS: Megestrol Acetate 40 MG TAB PO SCH ×3 (07:59→17:23)
[2020-06-02] MEDS: Pantoprazole 40 MG VIAL IVP SCH (07:59)
[2020-06-02] MEDS: Enoxaparin Sodium 40 MG/0.4 ML SYRINGE SC SCH ×2 (07:59→21:26)
[2020-06-02] MEDS ORDERED: Digoxin 0.125 MG TAB PO SCH (08:45)
[2020-06-02] MEDS: ALPRAZolam 0.25 MG TAB PO SCH (10:00)
[2020-06-02] MEDS: Metoprolol Tartrate 25 MG TAB PO SCH ×2 (15:15→21:26)
[2020-06-02] MEDS: Saccharomyces boulardii 250 MG CAP PO SCH (21:26)
[2020-06-02] MEDS: Acetaminophen 325 MG TAB PO PRN (21:28)
[2020-06-03] MEDS: Enoxaparin Sodium 40 MG/0.4 ML SYRINGE SC SCH ×2 (08:52→20:30)
[2020-06-03] MEDS: Metoprolol Tartrate 25 MG TAB PO SCH ×3 (08:52→20:30)
[2020-06-03] MEDS: Dexamethasone 4 MG TAB PO SCH ×2 (08:52→20:30)
[2020-06-03] MEDS: Megestrol Acetate 40 MG TAB PO SCH ×3 (08:52→17:45)
[2020-06-03] MEDS: Pantoprazole 40 MG VIAL IVP SCH (08:53)
[2020-06-03] MEDS: ALPRAZolam 0.25 MG TAB PO SCH (08:55)
[2020-06-03] MEDS: Sodium Chloride 0.9% 1,000 ML IV SCH (09:06)
[2020-06-03] MEDS: Saccharomyces boulardii 250 MG CAP PO SCH (20:30)
[2020-06-04] MEDS: Megestrol Acetate 40 MG TAB PO SCH ×2 (08:53→12:21)
[2020-06-04] MEDS: Dexamethasone 4 MG TAB PO SCH ×2 (08:53→21:00)
[2020-06-04] MEDS: Metoprolol Tartrate 25 MG TAB PO SCH ×3 (08:53→21:00)
[2020-06-04] MEDS: Enoxaparin Sodium 40 MG/0.4 ML SYRINGE SC SCH (08:54)
[2020-06-04] MEDS: Pantoprazole 40 MG VIAL IVP SCH (08:55)
[2020-06-04] MEDS: ALPRAZolam 0.25 MG TAB PO SCH (08:56)
[2020-06-04] MEDS: Sodium Chloride 0.9% 1,000 ML IV SCH ×2 (08:57→18:51)
[2020-06-04] MEDS ORDERED: Lorazepam 1 MG TAB PO SCH (12:00)
[2020-06-04] MEDS ORDERED: Iopamidol-370 76% 500 ML 1 ML ONE (14:26)
[2020-06-04] MEDS ORDERED: Sodium Bicarb 50 MEQ/50 ML Abboject 8.4% SYRINGE ONE ×2 (16:22→18:00)
[2020-06-04] MEDS ORDERED: EPINEPHrine 1 MG/10 ML Abboject SYRINGE ONE (16:22)
[2020-06-04] MEDS ORDERED: Calcium Chloride 1 GM/10 ML Abboject SYRINGE ONE (16:22)
[2020-06-04] MEDS ORDERED: Norepinephrine 8 MG/0.9% NS 250 ML ONE ×2 (16:33→22:19)
[2020-06-04] MEDS ORDERED: Propofol 1,000 MG/100 ML VIAL IV ONE (16:51)
[2020-06-04] MEDS ORDERED: Electrolyte Replacement Protocol 1 EACH FS PRN (16:55)
[2020-06-04] MEDS ORDERED: Ventilator Sedation Protocol 1 EACH FS ONE (16:55)
[2020-06-04] MEDS ORDERED: Propofol BOLUS 1,000 MG/100 ML VIAL IV PRN (17:00)
[2020-06-04] MEDS ORDERED: Fentanyl BOLUS 250 ML IVPB PRN (17:00)
[2020-06-04] MEDS ORDERED: Lorazepam 2 MG/ML VIAL SLOW IVP PRN (17:00)
[2020-06-04] MEDS ORDERED: Morphine 2 MG/ML VIAL SLOW IVP PRN (17:00)
[2020-06-04] MEDS ORDERED: Propofol 1,000 MG/100 ML VIAL IV PRN (17:00)
[2020-06-04] MEDS ORDERED: DISCONTINUE PREVIOUS NARCOTIC PAIN MEDICATIONS AND BENZODIAZEPINES FS SCH (17:00)
[2020-06-04] MEDS ORDERED: Fentanyl CADD 100 ML IV SCH (17:00)
[2020-06-04 17:05] VITALS: BP 95/77
[2020-06-04 17:35] LABS: BUN (Urea Nitrogen) 30 mg/dL (7.0-18.7); Calc. Creatinine Clearance 104 mL/min (70-130); Calcium 8.5 mg/dL (7.8-10.44); Chloride 119 mmol/L (98-107); Glucose 124 mg/dL (70-105); Potassium 4.2 mmol/L (3.5-5.1); Sodium 147 mmol/L (136-145); Troponin I 0.081 ng/mL (< 0.028)
[2020-06-04 17:45] LABS: Anisocytosis SLIGHT = 6-15 cells (100X) (0-5/hpf); Band 9 % (5-11); Hemoglobin 6.3 g/dL (12.0-16.0); Hypochromia SLIGHT = 6-15 cells (100X) (0-5/hpf); Lymphocytes 8 % (21-51); MDiff Complete? YES; Macrocytosis SLIGHT = 6-15 cells (100X) (0-5/hpf); Mean Corpuscular HGB CONC 29.8 g/dL (32.0-36.0); Mean Corpuscular Hemoglobin 29.4 pg (27.0-31.0); Mean Corpuscular Volume 98.6 fL (78.0-98.0); Mean Platelet Volume 9.6 fL (7.4-10.4); Monocytes 4 % (0-10); Neutrophil 79 % (42-75); Nucleated RBC 25 % (0); Platelet Count 141 thou/uL (130-400); Platelet Morphology Comment Appears Adequate; Polychromasia MODERATE = 3-4 cells (100X) (0-2/hpf); RBC Distribution Width 21.7 % (11.5-14.5); Red Blood Cell (RBC) Count 2.14 mill/uL (4.20-5.40); White Blood Cell (WBC) Count 27.7 thou/uL (4.8-10.8)
[2020-06-04 17:49] LABS: Actual Bicarbonate (HCO3a) 5.1 mEq/L (22-28); Base Excess (BEa) -22.2 mEq/L (-2.0 to +3.0); Calcium, Ionized (arterial) 1.28 mmol/L (1.12-1.30); Carboxyhemoglobin (COHb) 0.5 gm% (0.0-3.0); Hemoglobin (Hb) 6.5 g/dL (12.0-16.0); Potassium - ABG Lab 4.78 mmol/L (3.70-5.30)
[2020-06-04 17:49] LABS: Carbon Dioxide Less than 8 mmol/L (22-29)
[2020-06-04 17:52] LABS: CO2 Tension 16.1 mmHg (35.0-45.0); O2 Tension (PaO2), arterial 530.2 mmHg (80.0-100.0); pH, Arterial 7.12 (7.35-7.45)
[2020-06-04 17:53] LABS: ALV-art Gradient 162.675 mmHg (0-20); Puncture Site RRA
[2020-06-04] MEDS ORDERED: Sodium Bicarb 50 MEQ/50 ML Abboject 8.4% SYRINGE IVP SCH (18:15)
[2020-06-04] MEDS: Sodium Bicarbonate 150 MEQ in Dextrose 5% in Water 1,000 ML IV SCH (18:51)
[2020-06-04] MEDS: Saccharomyces boulardii 250 MG CAP PO SCH (21:00)
[2020-06-04] MEDS ORDERED: Fentanyl CADD 100 ML ONE (22:39)
[2020-06-05 01:07] LABS: Calcium, Ionized (arterial) 1.15 mmol/L (1.12-1.30); Carboxyhemoglobin (COHb) 0.3 gm% (0.0-3.0); Hemoglobin (Hb) 11.4 g/dL (12.0-16.0); O2 Tension (PaO2), arterial 138.6 mmHg (80.0-100.0); Potassium - ABG Lab 5.34 mmol/L (3.70-5.30)
[2020-06-05 01:20] LABS: ALV-art Gradient 124.225 mmHg (0-20); CO2 Tension 17.9 mmHg (35.0-45.0); Puncture Site LBA; pH, Arterial 7.14 (7.35-7.45)
[2020-06-05] MEDS: Sodium Bicarb 50 MEQ/50 ML Abboject 8.4% SYRINGE ONE ×2 (01:29→01:30)
[2020-06-05] MEDS ORDERED: Vasopressin 20 UNIT, Admixture Fee 1 EACH in Sodium Chloride 0.9% 50 ML IV SCH (01:45)
[2020-06-05] MEDS: Sodium Bicarbonate 150 MEQ in Dextrose 5% in Water 1,000 ML IV SCH (02:19)
[2020-06-05] MEDS: Norepinephrine 8 MG/0.9% NS 250 ML IVPB SCH ×2 (02:19→06:09)
[2020-06-05] MEDS: Sodium Chloride 0.9% 1,000 ML IV SCH (03:00)
[2020-06-05 06:03] VITALS: BMI 36.9
[2020-06-05 06:07] LABS: Anisocytosis SLIGHT = 6-15 cells (100X) (0-5/hpf); Band 15 % (5-11); Burr Cells SLIGHT = 2-5 cells (100X) (0-1/hpf); Hemoglobin 10.3 g/dL (12.0-16.0); Lymphocytes 5 % (21-51); MDiff Complete? YES; Mean Corpuscular HGB CONC 30.9 g/dL (32.0-36.0); Mean Platelet Volume 6.8 fL (7.4-10.4); Monocytes 8 % (0-10); Neutrophil 72 % (42-75); Nucleated RBC 27 % (0); Platelet Count 101 thou/uL (130-400); Platelet Morphology Comment Appears Decreased; Polychromasia SLIGHT = 2-3 cells (100X) (0-2/hpf); RBC Distribution Width 18.6 % (11.5-14.5); Red Blood Cell (RBC) Count 3.42 mill/uL (4.20-5.40); White Blood Cell (WBC) Count 41.6 thou/uL (4.8-10.8)
[2020-06-05 06:48] LABS: Actual Bicarbonate (HCO3a) 5.2 mEq/L (22-28); Base Excess (BEa) -22.9 mEq/L (-2.0 to +3.0); Calcium, Ionized (arterial) 1.06 mmol/L (1.12-1.30); Carboxyhemoglobin (COHb) 0.1 gm% (0.0-3.0); Hemoglobin (Hb) 8.7 g/dL (12.0-16.0); O2 Tension (PaO2), arterial 420.8 mmHg (80.0-100.0); Potassium - ABG Lab 5.57 mmol/L (3.70-5.30)
[2020-06-05 06:50] LABS: CO2 Tension 17.9 mmHg (35.0-45.0); Puncture Site RRA; pH, Arterial 7.08 (7.35-7.45)
[2020-06-05 06:51] LABS: ALV-art Gradient 269.825 mmHg (0-20)
[2020-06-05 07:12] LABS: Anion Gap 34 mmol/L (10-20); BUN (Urea Nitrogen) 31 mg/dL (7.0-18.7); Calc. Creatinine Clearance 86 mL/min (70-130); Carbon Dioxide 8 mmol/L (22-29); Chloride 109 mmol/L (98-107); Glucose 106 mg/dL (70-105); Potassium 5.3 mmol/L (3.5-5.1); Sodium 146 mmol/L (136-145)
[2020-06-05] MEDS ORDERED: Morphine 4 MG/ML VIAL SLOW IVP PRN (09:46)
[2020-06-05] MEDS: Metoprolol Tartrate 25 MG TAB PO SCH (10:26)
[2020-06-05] MEDS: Pantoprazole 40 MG VIAL IVP SCH (10:26)
[2020-06-05] MEDS: Dexamethasone 4 MG TAB PO SCH (10:26)
[2020-06-05 10:41] VITALS: TEMP 97.7
== END 2020-06-05 10:37 | disposition expired | DRG 871 ==
LOC: ERS 10:38 → ERHOLD 14:20 → CCU 17:08 → 2NO 05-28 03:07 → ONC 05-29 18:07 → 2NO 05-30 14:30 → CCU 06-04 16:37
PROVIDERS: ADMIT Internal Medicine; ATTEND Family Medicine
PROC: 3E033XZ Introduction of Vasopressor into Peripheral Vein, Percutaneous Approach (ICD-10-PCS; principal; 2020-05-25)
PROC: 06HY33Z Insertion of Infusion Device into Lower Vein, Percutaneous Approach (ICD-10-PCS; 2020-05-25)
PROC: 0T9B70Z Drainage of Bladder with Drainage Device, Via Natural or Artificial Opening (ICD-10-PCS; 2020-05-25)
PROC: 5A1935Z Respiratory Ventilation, Less than 24 Consecutive Hours (ICD-10-PCS; 2020-06-04)
PROC: 5A12012 Performance of Cardiac Output, Single, Manual (ICD-10-PCS; 2020-06-04)
PROC: 30233N1 Transfusion of Nonautologous Red Blood Cells into Peripheral Vein, Percutaneous Approach (ICD-10-PCS; 2020-06-04)
PROC: 0BH17EZ Insertion of Endotracheal Airway into Trachea, Via Natural or Artificial Opening (ICD-10-PCS; 2020-06-04)
DX: A41.9 Sepsis, unspecified organism (principal); R65.21 Severe sepsis with septic shock; J18.9 Pneumonia, unspecified organism; K72.00 Acute and subacute hepatic failure without coma; G92 Toxic encephalopathy; N17.9 Acute kidney failure, unspecified; E87.2 Acidosis; C79.31 Secondary malignant neoplasm of brain; C78.7 Secondary malignant neoplasm of liver and intrahepatic bile duct; C78.02 Secondary malignant neoplasm of left lung; C78.01 Secondary malignant neoplasm of right lung; E87.1 Hypo-osmolality and hyponatremia; C79.51 Secondary malignant neoplasm of bone; I46.8 Cardiac arrest due to other underlying condition; Z66 Do not resuscitate; Z51.5 Encounter for palliative care; Z20.822 Contact with and (suspected) exposure to COVID-19; I10 Essential (primary) hypertension; C50.912 Malignant neoplasm of unspecified site of left female breast; R74.01 Elevation of levels of liver transaminase levels; J45.909 Unspecified asthma, uncomplicated; K21.9 Gastro-esophageal reflux disease without esophagitis; M25.569 Pain in unspecified knee; M54.9 Dorsalgia, unspecified; E86.9 Volume depletion, unspecified; F41.9 Anxiety disorder, unspecified; F32.9 Major depressive disorder, single episode, unspecified; K58.0 Irritable bowel syndrome with diarrhea; G89.4 Chronic pain syndrome; E16.2 Hypoglycemia, unspecified; Z78.1 Physical restraint status; Z88.1 Allergy status to other antibiotic agents; Z88.2 Allergy status to sulfonamides; Z28.21 Immunization not carried out because of patient refusal; Z87.891 Personal history of nicotine dependence; Z17.1 Estrogen receptor negative status [ER-]; Z90.49 Acquired absence of other specified parts of digestive tract; Z98.51 Tubal ligation status; Z79.899 Other long term (current) drug therapy; Z80.0 Family history of malignant neoplasm of digestive organs; Z79.891 Long term (current) use of opiate analgesic; Z79.818 Long term (current) use of other agents affecting estrogen receptors and estrogen levels; Z80.3 Family history of malignant neoplasm of breast; I34.1 Nonrheumatic mitral (valve) prolapse
CPT/HCPCS: 0240U; 36415; 36416; 36430; 36556; 36600; 51701; 70450; 70553; 71045; 71275; 76705; 80048; 80053; 80076; 80202; 81003; 82140; 82533; 82550; 82553; 82805; 83605; 83690; 83930; 83935; 84300; 84484; 85025; 86850; 86900; 86901; 87040; 87086; 92950; 93005; 94002; 94003; 96365; 96366; 96367; 96368; 96375; 99292; A9579; C9113; J0171; J0360; J0692; J1100; J1630; J1644; J1650; J1720; J2060; J2250; J2270; J2405; J2704; J3010; J3370; J3480; J3486; J3490; J7050; J7070; J8540; P9016; Q9967; S0179